=== PATIENT | female | born 1925 | race Caucasian/White ===

== ENCOUNTER 2016-06-03 07:30 | Inpatient (IN) | payer MEDICARE ==
[2016-06-03] VITALS (14 sets, daily range): BP systolic 157–223; BP diastolic 53–94; BMI 21.0
[~2016-06-03] VITALS: Ht 154.9 cm; Wt 50.3 kg
[~2016-06-03 07:30] MED LIST: GLIPIZIDE10 MG PO; HYDROCHLOROTHIA25 MG PO; KLOR-CON 1010 MEQ PO; LANTUS INSULIN10 ML SQ; LEVOXYL75 MCG PO; LOPRESSOR25 MG PO; SYNTHROID50 MCG PO; ZOCOR40 MG PO
[2016-06-03 08:39] LABS: APPEARANCE CLEAR (CLEAR); BILIRUBIN NEGATIVE (NEGATIVE); COLOR YELLOW (YELLOW); GLUCOSE NEGATIVE (NEGATIVE); KETONE NEGATIVE (NEGATIVE); LEUKOCYTE ESTERASE NEGATIVE (NEGATIVE); NITRITE NEGATIVE (NEGATIVE); PROTEIN TRACE mg/dL (NEGATIVE); UROBILINOGEN NORMAL (NORMAL)
[2016-06-03 08:57] LABS: BASOPHILS 0.3 % (0.0-2.0); EOSINOPHILS 1.1 % (0-7); IMMATURE GRANULOCYTES 0.2 % (0-5); MCH 29.1 pg (26.0-34.0); MCHC 31.4 g/dL (31.0-37.0); MCV 92.6 fL (80.0-100.0); MEAN PLATELET VOLUME 11.7 fL (7.4-10.4); MONOCYTES 9.8 % (2-11); NEUTROPHILS 81.6 % (40-80); PLATELET COUNT 254 10x3/uL (130-400); RBC 3.78 10x6/uL (4.00-5.40); RDW 15.7 % (11.5-14.5); WBC 6.5 10x3/uL (4.8-10.8)
[2016-06-03 09:00] LABS: ALBUMIN 2.8 g/dL (3.4-5.0); ANION GAP 13.9 mmol/L (8-16); BILIRUBIN - TOTAL 0.3 mg/dL (0.2-1.3); CALCIUM 8.3 mg/dL (8.5-10.1); CARBON DIOXIDE 28.1 mmol/L (21.0-32.0); CREATININE - SERUM 1.7 mg/dL (0.6-1.3); PROTEIN - SERUM 6.3 g/dL (6.4-8.2)
--- NOTE | 2016-06-03 10:51 | NUR ---
Patient Name: HOLLI PEREZ Admission Status: ER Accout number: [id number] Admission Date: 06-03-2016 : 1927 Admission Diagnosis: prolonged hypoglycemia Attending: TANESHA Current LOS: 1 Anticipated DC Date: 06-07-2016 Planned Disposition: [facility] with home health for PT/OT. Primary Insurance: MEDICARE A & B Discharge Planning Comments: Cm met with patient and daughter, Patience Russ, to complete initial discharge planning assessment. Patient not oriented and not able to answer questions. Patience reports that patient was living with her disabled daughter but she is not able to care for patient any longer. Patient was hospitalized in April and went to [place] post dc from hospital. She just left [place] last week and family placed her in [facility]. Since she has moved to [place] her daughter reports she has had increased confusion. She has a borrowed walker with a seat she is using at facility and they are in the process of getting her a walker ordered. Patient might benefit from therapy at discharge to assist patient in her new environment and help with weakness. Daughter agrees that this would benefit the patient. CM informed her that we could order equipment for her at time of discharge if needed. She verbalized understanding. Cm will continue to follow and will assist as needed with dc plans/needs. Rail Flaw Detector Operator: Mehreen Resendiz RN, [facility] [phone] Is the patient Alert and Oriented? No * How many steps to enter\exit or inside your home? 0 * PCP Dr. Cerna * Pharmacy [facility] * Preadmission Environment Assisted Living * Facility Name [facility] * ADLs Partial Dependent * Partial ADLs (Assistance needed) Medication Management * Equipment Glucometer Rolling Walker * Other Equipment Walker is borrowed from [facility]. Needs either a walker or wheelchair at discharged. * List name and contact numbers for known caregivers / representatives who currently or will assist patient after discharge: Patience Russ - daughter - [phone] * Community resources currently utilized Assisted Living * Additional services required to return to the preadmission environment? Yes * Can the patient safely return to the preadmission environment? Yes * Has this patient been hospitalized within the prior 30 days at any hospital? No
--- NOTE | 2016-06-03 11:40 | NUR ---
DR. WEBBER AT BEDSIDE SPEAKING WITH FAMILY. AWARE OF CURRENT SBP 190. NO ORDERS FOR BP MED.
--- NOTE | 2016-06-03 19:10 | NUR ---
ASSESSMENT COMPLETED. ALERT, FLAT AFFECT. WILL NOT SPEAK JUST STARES AT ME. O2 @ 2L VIA NC, SCOTT LUNGS DIMINISHED IN THE BASES. RT FA PIV, SITE WITHOUT REDNESS OR EDEMA WITH D5LR @ 75CC/HR VIA PUMP. SCOTT EDEMA TO LOWER EXTREMITY'S. BUTTOCK RED, BUTT PASTE APPLIED. PPP. SR ON THE MONITOR.
--- NOTE | 2016-06-03 20:18 | NUR ---
REMOVED MONITOR LEADS, O2 AND ATTEMPTING TO REMOVE IV. REORIENTED, LEAD REPLACE AND COBAN PLACED OVER IV. WILL CONT TO MONITOR. BED ALARM IN PLACE.
--- NOTE | 2016-06-03 21:00 | NUR ---
FAMILY AT BEDSIDE. UPDATE GIVEN.
--- NOTE | 2016-06-03 23:00 | NUR ---
SITTING UP IN BED WATCHING TV. DENIES ANY NEEDS AT THIS TIME.
[2016-06-04] VITALS (16 sets, daily range): BP systolic 157–214; BP diastolic 58–107
--- NOTE | 2016-06-04 01:00 | NUR ---
NO CHANGES AT THIS TIME. SR ON THE MONITOR.
--- NOTE | 2016-06-04 03:40 | NUR ---
BED BATH AND LINEN CHANGE COMPLETED. TOLLERATED WELL. DENIES ANY PAIN AT THIS TIME.
[2016-06-04 04:34] LABS: BASOPHILS 0.4 % (0.0-2.0); HEMATOCRIT 34.5 % (36.0-48.0); HEMOGLOBIN 10.8 g/dL (12-16); IMMATURE GRANULOCYTES 0.3 % (0-5); LYMPHOCYTES 6.3 % (15-50); MCHC 31.3 g/dL (31.0-37.0); MCV 92.7 fL (80.0-100.0); MEAN PLATELET VOLUME 12.1 fL (7.4-10.4); MONOCYTES 8.2 % (2-11); NEUTROPHILS 77.8 % (40-80); PLATELET COUNT 247 10x3/uL (130-400); RBC 3.72 10x6/uL (4.00-5.40); RDW 15.7 % (11.5-14.5); WBC 7.9 10x3/uL (4.8-10.8)
[2016-06-04 04:51] LABS: ALBUMIN 2.9 g/dL (3.4-5.0); ANION GAP 13.5 mmol/L (8-16); BILIRUBIN - TOTAL 0.27 mg/dL (0.2-1.3); CALCIUM 8.6 mg/dL (8.5-10.1); CREATININE - SERUM 1.6 mg/dL (0.6-1.3); PRE-ALBUMIN 17.8 mg/dL (18.0-35.7); PROTEIN - SERUM 6.5 g/dL (6.4-8.2)
[2016-06-04 04:53] LABS: POTASSIUM - SERUM 3.5 mmol/L (3.5-5.1)
--- NOTE | 2016-06-04 13:04 | NUR ---
WALKED PER P.T. ON ROOM AIR. O2 SATS DOWN TO 79%. PLACED BACK ON 2L NC. O2 SAT NOW 96%.
--- NOTE | 2016-06-04 13:22 | NUR ---
RESTING ROOM AIR SAT 85%. PATIENT PLACED BACK ON 2L NC AND RECOVERED TO 94%.
--- NOTE | 2016-06-04 14:05 | NUR ---
DR. WEBBER PAGED CONCERNING BP.
--- NOTE | 2016-06-04 15:10 | NUR ---
DR. WEBBER PAGED CONCERNING BP. NEW ORDER RECIEVED.
--- NOTE | 2016-06-04 17:35 | NUR ---
DR. WEBBER PAGED CONCERNING BP. NEW ORDER RECIEVED.
--- NOTE | 2016-06-04 19:28 | NUR ---
REPORT CALLED TO MED SURG. CALLED DAUGHTER, MYLENE, AND NOTIFIED OF TRANSFER. WILL HOLD PT UNTIL DAUGHTER ARRIVES. PT REMOVED IV AND HANDED IT TO ME. SOMEWHAT CONFUSED. WILL CONT TO MONITOR.
--- NOTE | 2016-06-04 19:38 | NUR ---
DAUGHTER HERE. TRANSFERED TO 2238 VIA W/C.
--- NOTE | 2016-06-04 19:48 | NUR ---
RECEIVED PATIENT FROM ICU. DAUGHTER IS AT BEDSIDE. PATIENT SEEMS ANXIOUS AND CONFUSED ABOUT MOVING TO A NEW ROOM. REORIENTED PATIENT TO TIME AND SITUATION.
[2016-06-05 01:30] VITALS: BP 115/46
[2016-06-05 04:00] VITALS: BP 187/63
--- NOTE | 2016-06-05 07:30 | NUR ---
PATIENT RECEIVED IN LEFT LATERAL POSITION RESTING QUIETLY. RESPIRATIONS EVEN AND UNLABORED. SIDE RAILS UP X3. BED IN LOW POSITION. CALL LIGHT IN REACH. KARLIE ALARM ON.
[2016-06-05 07:48] VITALS: BP 172/63
--- NOTE | 2016-06-05 08:15 | NUR ---
PATIENT ALERT IN BED. REPOSITIONED FOR COMFORT. SCHEDULED MEDICATION ADMINISTERED. SIDE RAILS UP X2. BED IN LOW POSITION. CALL LIGHT IN REACH.
--- NOTE | 2016-06-05 11:00 | NUR ---
ACCU CHECK 132. NO INSULIN PER SLIDING SCALE. DENIES NEEDS. SIDE RAILS UP X3. BED IN LOW POSITION. CALL LIGHT IN REACH. AKRLIE ALARM ON.
--- NOTE | 2016-06-05 11:15 | NUR ---
PATIENT PLACED ON ENTERIC PRECAUTIONS. APPROPRIATE SIGNS PLACED ON DOOR.
[2016-06-05 11:50] LABS: BASOPHILS 0.3 % (0.0-2.0); EOSINOPHILS 6.4 % (0-7); HEMATOCRIT 30.6 % (36.0-48.0); HEMOGLOBIN 9.5 g/dL (12-16); IMMATURE GRANULOCYTES 0.2 % (0-5); MCH 28.5 pg (26.0-34.0); MCV 91.9 fL (80.0-100.0); MEAN PLATELET VOLUME 11.6 fL (7.4-10.4); MONOCYTES 10.7 % (2-11); NEUTROPHILS 73.4 % (40-80); PLATELET COUNT 210 10x3/uL (130-400); RBC 3.33 10x6/uL (4.00-5.40); RDW 15.6 % (11.5-14.5)
[2016-06-05 11:52] LABS: WBC 5.9 10x3/uL (4.8-10.8)
[2016-06-05 12:21] LABS: ALBUMIN 2.6 g/dL (3.4-5.0); ANION GAP 10.1 mmol/L (8-16); BILIRUBIN - TOTAL 0.34 mg/dL (0.2-1.3); CALCIUM 8.3 mg/dL (8.5-10.1); CARBON DIOXIDE 31.7 mmol/L (21.0-32.0); CREATININE - SERUM 1.6 mg/dL (0.6-1.3); POTASSIUM - SERUM 3.8 mmol/L (3.5-5.1); PROTEIN - SERUM 5.6 g/dL (6.4-8.2)
[2016-06-05 12:27] VITALS: BP 173/75
--- NOTE | 2016-06-05 14:01 | NUR ---
CM REASSESSMENT NOTE: CM SPOKE WITH RONNELL, AND SHILPA (DAUGHTERS OF PATIENT) REGARDING D/C NEEDS AND PLANS. PATIENT HAS SOME CONFUSION . DAUGHTERS HAVE REQUESTED HOME HEALTH W/PHYSICAL THERAPY AT [facility] WHEN PATIENT IS DISCHARGED. DAUGHTERS CHOSE [facility] OVER THE PHONE ARMEN FILED IN CHART.
--- NOTE | 2016-06-05 15:35 | NUR ---
ALERT IN BED WITH GUEST AT BEDSIDE. NO SIGNS OF DISTRESS NOTED. SCHEDULED MEDICATION ADMINISTERED. SIDE RAILS UP X3. BED IN LOW POSITION. CALL LIGHT IN REACH. KARLIE ALARM ON.
[2016-06-05 16:05] VITALS: BP 178/64
--- NOTE | 2016-06-05 17:45 | NUR ---
22 GAUGE IV SITED TO RIGHT FOREARM X1 ATTEMPT. FLUSHES EASY WITH BRISK BLOOD RETURN PRESENT. SECURED WITH TAPE AND TEGADERM. WRAPPED WITH KERLEX
[2016-06-05 19:00] VITALS: BP 153/52
--- NOTE | 2016-06-06 03:30 | NUR ---
HELPED PATIENT TO THE RESTROOM. PATIENT HAD A SMALL BM. CHANGED LINENS AND GOWN. BED IN LOWEST POSITION AND CALL LIGHT WITHIN REACH. ENCOURAGED PATIENT TO CALL IF SHE NEEDS ASSISTANCE.
[2016-06-06 04:00] VITALS: BP 153/54
[2016-06-06 06:27] LABS: BASOPHILS 0.2 % (0.0-2.0); EOSINOPHILS 7.8 % (0-7); HEMATOCRIT 29.6 % (36.0-48.0); HEMOGLOBIN 9.2 g/dL (12-16); IMMATURE GRANULOCYTES 0.2 % (0-5); MCH 28.3 pg (26.0-34.0); MCHC 31.1 g/dL (31.0-37.0); MCV 91.1 fL (80.0-100.0); MONOCYTES 13.9 % (2-11); NEUTROPHILS 60.9 % (40-80); PLATELET COUNT 194 10x3/uL (130-400); RBC 3.25 10x6/uL (4.00-5.40); RDW 15.6 % (11.5-14.5); WBC 4.6 10x3/uL (4.8-10.8)
[2016-06-06 06:54] LABS: ALBUMIN 2.6 g/dL (3.4-5.0); ANION GAP 8.3 mmol/L (8-16); BILIRUBIN - TOTAL 0.34 mg/dL (0.2-1.3); CALCIUM 8.2 mg/dL (8.5-10.1); CARBON DIOXIDE 32.5 mmol/L (21.0-32.0); CREATININE - SERUM 1.6 mg/dL (0.6-1.3); POTASSIUM - SERUM 3.8 mmol/L (3.5-5.1); PROTEIN - SERUM 5.4 g/dL (6.4-8.2)
--- NOTE | 2016-06-06 08:07 | NUR ---
AWAKE AND ALERT. ORIENTED X3. NO C/O AT THIS TIME. LUNGS HAVE FAINT CRACKLES IN BILATERAL LOWER LOBES, NO COUGH NOTED. SKIN IS INTACT WITHOUT REDNESS. SCD'S IN PLACE. SL TO RIGHT WRIST AREA PATENT WITHOUT REDNESS AT INSERTION SITE. DENIES NEEDS AT THIS TIME.
--- NOTE | 2016-06-06 08:11 | NUR ---
BP 185/55. GIVEN 0.1 MG CLONIDINE PO. WILL MONITOR.
[2016-06-06 08:13] VITALS: BP 185/55
--- NOTE | 2016-06-06 09:13 | NUR ---
MANUAL BP 130/45 WILL HOLD BP MEDS FOR NOW.
--- NOTE | 2016-06-06 10:53 | NUR ---
RESTING QUIETLY IN BED. DENIES NEEDS. REFUSED TO EAT ANY BREAKFAST THIS AM.
[2016-06-06 12:18] VITALS: BP 175/61
[2016-06-06 14:37] VITALS: Ht 154.9 cm; Wt 50.3 kg
--- NOTE | 2016-06-06 15:41 | NUR ---
BP IS 167/60 MANUAL. GIVEN ONE 0.1 MG CLONIDINE PO FOR SAME. WILL MONITOR.
[2016-06-06 15:52] VITALS: BP 167/60
[2016-06-06 19:00] VITALS: BP 160/80
--- NOTE | 2016-06-07 01:17 | NUR ---
REC'D. DURING WALKING ROUNDS LYING ON LEFT SIDE EYES CLOSED RESP. DEEP AND EVEN.02 2L NC.RESP. DEEP AND EVEN.WILL CONTINUE TO MONITOR FOR ANY CHGES. AND FOLLOW CURRENT PLAN OF CARE
[2016-06-07 04:00] VITALS: BP 188/75
[2016-06-07 06:35] LABS: BASOPHILS 0.7 % (0.0-2.0); EOSINOPHILS 5.6 % (0-7); HEMATOCRIT 30.7 % (36.0-48.0); HEMOGLOBIN 9.6 g/dL (12-16); IMMATURE GRANULOCYTES 0.2 % (0-5); LYMPHOCYTES 14.2 % (15-50); MCH 28.8 pg (26.0-34.0); MCHC 31.3 g/dL (31.0-37.0); MCV 92.2 fL (80.0-100.0); MEAN PLATELET VOLUME 11.4 fL (7.4-10.4); MONOCYTES 13.9 % (2-11); NEUTROPHILS 65.4 % (40-80); PLATELET COUNT 210 10x3/uL (130-400); RBC 3.33 10x6/uL (4.00-5.40); RDW 15.6 % (11.5-14.5); WBC 5.3 10x3/uL (4.8-10.8)
[2016-06-07 07:06] LABS: ALBUMIN 2.6 g/dL (3.4-5.0); ANION GAP 7.4 mmol/L (8-16); BILIRUBIN - TOTAL 0.27 mg/dL (0.2-1.3); CALCIUM 8.5 mg/dL (8.5-10.1); CARBON DIOXIDE 34.1 mmol/L (21.0-32.0); CREATININE - SERUM 1.7 mg/dL (0.6-1.3); POTASSIUM - SERUM 3.5 mmol/L (3.5-5.1)
--- NOTE | 2016-06-07 07:40 | NUR ---
INCONTINENCE CARE PROVIDED AT THIS TIME. LUISA'S APPLIED TO PT'S BUTTOCK D/T REDNESS. KARLIE MAT ALARM IN USE AND SRX3. BED IN LOWEST POSITION WITH WHEELS LOCKED. CALL LIGHT IN REACH, WILL CONTINUE WITH PLAN OF CARE.
--- NOTE | 2016-06-07 08:49 | NUR ---
SCHEDULED MEDICATIONS ADMINISTERED AT THIS TIME. ASSESSMENT PERFORMED PER FLOWSHEET. CALL LIGHT IN REACH, DENIES NEEDS AT THIS TIME. WILL CONTINUE WITH PLAN OF CARE.
[2016-06-07 08:50] VITALS: BP 138/72
--- NOTE | 2016-06-07 10:30 | NUR ---
SLEEPING AT THIS TIME. NO S/S OF DISTRESS PRESENT. OXYGEN ON 2L VIA NC. PT REMAINS CLEAN AND DRY. CALL LIGHT IN REACH AND KARLIE MAT ALARM IN USE. WILL CONTINUE WITH PLAN OF CARE.
[2016-06-07] MEDS ORDERED: LANTUS INSULIN10 ML SC (11:05)
[2016-06-07 12:48] VITALS: BP 171/54
--- NOTE | 2016-06-07 14:48 | NUR ---
CM REASSESSMENT NOTE: PATIENT IS DISCHARGING BACK TO [facility] BY FACILITY VAN TODAY AROUND 3:30. PATIENT HAS PORTABLE O2 IN HER ROOM FOR TRANSPORT PROVIDED BY [facility]. HOME O2 IS BEING DELIVERED TO HER ROOM AT [facility] BEFORE DISCHARGE. BOTH DAUGHTERS (SHILPA) AND ( RONNELL) HAVE BEEN NOTIFIED OF TIME OF DISCHARGE. RONNELL WAS AGREEABLE THIS AM WITH THE IMM.
--- NOTE | 2016-06-07 14:49 | NUR ---
CM REASSESSMENT NOTE: [facility] HAS BEEN NOTIFIED OF DISCHARGE
--- NOTE | 2016-06-07 15:42 | NUR ---
REPORT CALLED TO [facility], [place], [phone], AT THIS TIME. INCONTINENCE CARE PROVIDED AND BRIEF PLACED ON PATIENT. WILL AWAIT D/C TRANSPORTATION.
--- NOTE | 2016-06-07 16:15 | NUR ---
D/C TO [facility] AT THIS TIME VIA WHEELCHAIR.
--- NOTE | 2016-06-20 08:17 | EC ---
PATIENT:HOLLI PEREZ DATE OF SERVICE: 06/03/16 SEX: F MEDICAL RECORD: [id number] DATE OF : [birth year] LOCATION:[facility] [place] AGE OF PATIENT: 89 ADMISSION DATE: 06/03/16 REFERRING PHYSICIAN: INTERPRETING PHYSICIAN: JENNIFER MEEK M.D. ECHOCARDIOGRAM REPORT ECHO CHARGES 4 ECHO COMPLETE CLINICAL DIAGNOSIS: CHF ECHOCARDIOGRAPHIC MEASUREMENTS (adult normal given) AC root (d.<3.7cm) 2.9 LV Septum d (<1.2 cm> 1.3 Valve Excursion 1.6 LV Septum (systole) 1.8 Left Atria (s.<4.0cm> 4.5 LVPW d(<1.2cm) 1.3 RV (d.<2.3cm) 2.6 LVPW (sytole) 1.9 LV diastole(<5.6CM) 5.2 MV E-F(>70mm/sec) LV systole 3.2 LVOT Diameter 1.6 MV exc.(>10mm) Est.ejection fraction (50-75%) Pericardial Effusion Y DOPPLER: LVIT A 148 E 197 LA RVSP 71.0 LVOT 93.0 AOP1/2T Asc. Ao 136 RVOT 55.0 RA PA 82.0 AV Gradient Peak 7.4 AV Mean 3.9 AV Area 1.4 MV Gradient Peak 18.3 MV Mean 6.0 MV Area COMMENTS: Customs Guard: Jean Paul FENGOE Foreign Student Adviser:2 Dr. Meek TAPE# PACS DATE OF SERVICE: 06/05/2016 REFERRING PHYSICIAN: Justice Rashid MD. INDICATION: Congestive heart failure. DESCRIPTION: Left ventricle demonstrates left ventricular hypertrophy. No wall motion abnormalities are seen. Estimated ejection fraction is lower than its normal at 50%. Mitral valve demonstrates thickened leaflets. There is mitral annular calcification noted. There is moderate regurgitation seen. Left atrium ECHOCARDIOGRAM REPORT [id number] HOLLI PEREZ is mildly dilated. The aortic valve leaflets are thickened. There is mild insufficiency seen, but no evidence of stenosis. Right ventricle is mildly dilated. Tricuspid valve is normal. There is mild regurgitation seen. Right ventricular systolic pressure is elevated at 71 mmHg. There is a moderate-sized pericardial effusion noted. It appears circumferential. There is no evidence of any right atrial or right ventricular collapse. There is no evidence of tamponade. IMPRESSION: 1. Left ventricular hypertrophy with ejection fraction of 50%. 2. Moderate mitral regurgitation. 3. Aortic valve sclerosis without stenosis. 4. Mild aortic insufficiency. 5. Moderate tricuspid regurgitation with elevated pulmonary pressure. 6. Wcnot-hc-lmypbkfz size pericardial effusion. There is no evidence of any right atrial, right ventricular collapse or tamponade. TRANSINT:[id number] Voice Confirmation ID: [id number] DOCUMENT ID: [id number] JENNIFER MEEK M.D. at 0817 CC: [id number] DICTATION DATE: 06/06/16 0749 INSPECTOR SUBASSEMBLIES: 06/06/16 0825 DIS IN 06/07/16 [id number] [place] [address]
== END 2016-06-07 16:15 | disposition home health service (06) | DRG 637 ==
LOC: D.ER 07:30 → D.MS 10:06 → D.ICU 10:06 → D.MS 06-04 19:38
PROVIDERS: Emergency Medicine; Family Medicine Adult Medicine; ADMIT Emergency Medicine
DX: E11.649 Type 2 diabetes mellitus with hypoglycemia without coma (principal); I50.31 Acute diastolic (congestive) heart failure; Z79.4 Long term (current) use of insulin; I11.0 Hypertensive heart disease with heart failure; N17.9 Acute kidney failure, unspecified; F03.90 Unspecified dementia, unspecified severity, without behavioral disturbance, psychotic disturbance, mood disturbance, and anxiety; I34.0 Nonrheumatic mitral (valve) insufficiency; T68.XXXA Hypothermia, initial encounter

== ENCOUNTER 2016-06-13 18:35 | Emergency (ER) | payer MEDICARE, OTHER ==
[2016-06-06 14:37] VITALS: BMI 20.9
[~2016-06-13 18:35] MED LIST changes: +LANTUS INSULIN10 ML SC
== END 2016-06-13 20:46 | disposition home or self-care (01) ==
LOC: D.ER 18:35
DX: E11.65 Type 2 diabetes mellitus with hyperglycemia (principal); Z79.4 Long term (current) use of insulin; F03.90 Unspecified dementia, unspecified severity, without behavioral disturbance, psychotic disturbance, mood disturbance, and anxiety

== ENCOUNTER 2016-07-12 15:28 | Emergency (ER) | payer MEDICARE, OTHER ==
[2016-06-06 14:37] VITALS: BMI 20.9
[2016-07-12 16:27] LABS: BASOPHILS 0.5 % (0.0-2.0); EOSINOPHILS 1.8 % (0-7); HEMATOCRIT 37.6 % (36.0-48.0); HEMOGLOBIN 11.7 g/dL (12-16); IMMATURE GRANULOCYTES 0.2 % (0-5); LYMPHOCYTES 13.5 % (15-50); MCH 28.6 pg (26.0-34.0); MCHC 31.1 g/dL (31.0-37.0); MCV 91.9 fL (80.0-100.0); MEAN PLATELET VOLUME 11.8 fL (7.4-10.4); MONOCYTES 10.2 % (2-11); NEUTROPHILS 73.8 % (40-80); PLATELET COUNT 181 10x3/uL (130-400); RBC 4.09 10x6/uL (4.00-5.40); RDW 14.8 % (11.5-14.5); WBC 6.2 10x3/uL (4.8-10.8)
[2016-07-12 16:52] LABS: ALBUMIN 2.9 g/dL (3.4-5.0); ANION GAP 7.2 mmol/L (8-16); BILIRUBIN - TOTAL 0.43 mg/dL (0.2-1.3); CALCIUM 9.1 mg/dL (8.5-10.1); CREATININE - SERUM 1.8 mg/dL (0.6-1.3); POTASSIUM - SERUM 3.2 mmol/L (3.5-5.1); PROTEIN - SERUM 6.8 g/dL (6.4-8.2)
[2016-07-12 16:59] LABS: APTT 24.9 SECONDS (22.8-39.4); INR 0.93 (0.85-1.17); PROTIME 12.3 SECONDS (11.6-15.0)
[2016-07-12 18:52] LABS: APPEARANCE HAZY (CLEAR); BILIRUBIN NEGATIVE (NEGATIVE); COLOR YELLOW (YELLOW); GLUCOSE NEGATIVE (NEGATIVE); KETONE NEGATIVE (NEGATIVE); LEUKOCYTE ESTERASE 2+ (NEGATIVE); NITRITE NEGATIVE (NEGATIVE); PROTEIN 1+ mg/dL (NEGATIVE); UROBILINOGEN NORMAL (NORMAL)
[2016-07-12 18:54] LABS: BACTERIA MODERATE /hpf (NONE SEEN); EPITHELIAL CELLS 0-5 /hpf (0-5); WHITE CELLS - URINE >50 /hpf (0-5)
== END 2016-07-12 20:49 | disposition home or self-care (01) ==
LOC: D.ER 15:28
PROVIDERS: Family Medicine; Physician Assistant
DX: R41.82 Altered mental status, unspecified (principal); E11.9 Type 2 diabetes mellitus without complications; Z79.4 Long term (current) use of insulin; I10 Essential (primary) hypertension; N39.0 Urinary tract infection, site not specified; F03.90 Unspecified dementia, unspecified severity, without behavioral disturbance, psychotic disturbance, mood disturbance, and anxiety

== ENCOUNTER 2016-07-19 01:05 | Inpatient (IN) | payer MEDICARE, OTHER ==
[~2016-07-19] VITALS: Ht 154.9 cm; Wt 50.3 kg
[2016-07-19 02:33] LABS: BASOPHILS 0.2 % (0.0-2.0); HEMATOCRIT 40.8 % (36.0-48.0); HEMOGLOBIN 12.7 g/dL (12-16); IMMATURE GRANULOCYTES 0.5 % (0-5); LYMPHOCYTES 9.7 % (15-50); MCH 28.4 pg (26.0-34.0); MCHC 31.1 g/dL (31.0-37.0); MCV 91.3 fL (80.0-100.0); MEAN PLATELET VOLUME 12.4 fL (7.4-10.4); MONOCYTES 7.6 % (2-11); RBC 4.47 10x6/uL (4.00-5.40); RDW 14.4 % (11.5-14.5); WBC 6.6 10x3/uL (4.8-10.8)
[2016-07-19 02:38] LABS: PLATELET COUNT 226 10x3/uL (130-400)
[2016-07-19 02:41] LABS: ANION GAP 7.9 mmol/L (8-16); BILIRUBIN - TOTAL 0.47 mg/dL (0.2-1.3); CALCIUM 9.3 mg/dL (8.5-10.1); CARBON DIOXIDE 37.5 mmol/L (21.0-32.0); CREATININE - SERUM 1.4 mg/dL (0.6-1.3); POTASSIUM - SERUM 3.4 mmol/L (3.5-5.1)
[2016-07-19 03:04] LABS: APPEARANCE HAZY (CLEAR); BILIRUBIN NEGATIVE (NEGATIVE); COLOR YELLOW (YELLOW); GLUCOSE NEGATIVE (NEGATIVE); KETONE NEGATIVE (NEGATIVE); LEUKOCYTE ESTERASE 1+ (NEGATIVE); NITRITE NEGATIVE (NEGATIVE); PROTEIN 2+ mg/dL (NEGATIVE); SPECIFIC GRAVITY 1.005 (1.005-1.020); UROBILINOGEN NORMAL (NORMAL)
[2016-07-19 03:08] LABS: APTT 26.8 SECONDS (22.8-39.4); INR 0.91 (0.85-1.17); PROTIME 12.1 SECONDS (11.6-15.0)
[2016-07-19 03:11] LABS: BACTERIA MODERATE /hpf (NONE SEEN); EPITHELIAL CELLS 0-5 /hpf (0-5); RED CELLS - URINE 0-5 /hpf (0-5); WHITE CELLS - URINE 25-50 /hpf (0-5); YEAST <1+ /hpf (NONE SEEN)
[2016-07-19 05:26] VITALS: BP 190/81; BMI 21.0
--- NOTE | 2016-07-19 05:30 | NUR ---
RECEIVED PATIENT TO ROOM FROM ER VIA STRETCHER WITH DAUGHTER AND HOSPITAL STAFF. AWAKE AND ALERT BUT ONLY ORIENTED TO SELF. RR EVEN AND UNLABORED. O2 @ 2L VIA NC. 0 S/S OF DISTRESS. DENIES PAIN AT THIS TIME. IV TO LEFT FA S/L WITH NO REDNESS OR SWELLING. DRESSING TO RIGHT FA CDI. SMYTH SECURED WITH STATLOCK AND DRAINING TO GRAVITY. KARLIE MAT ON. DAUGHTER AT BEDSIDE. CALL LIGHT WITHIN REACH.
--- NOTE | 2016-07-19 06:31 | NUR ---
PATIENT'S BP 190/81. CATAPRES GIVEN PER ORDER. BS 176. INSULIN HELD DUE TO RECENT DROP IN BS AND PATIENT BEING NPO.
[2016-07-19] MEDS ORDERED: LANTUS INSULIN10 ML SC (07:47)
[2016-07-19] MEDS ORDERED: IMODIUM2 MG PO (07:48)
[2016-07-19] MEDS ORDERED: COLACE100 MG PO (07:49)
[2016-07-19] MEDS ORDERED: ULTRAM50 MG PO (07:50)
--- NOTE | 2016-07-19 08:00 | NUR ---
PATIENT IS AWAKE AND ALERT AND SHE KNOWS HER NAME AND KNOWS SHE IS IN THE HOSPITAL. SHE IS ANSWERING MOST QUESTIONS. PATIENT HAS A SMYTH CATH AND A S.L. TO LEFT FOREARM. PATIENT IS GOING TO HAVE A RIGHT HIP BIPOLAR ENDOPROSTHESIS TODAY.
[2016-07-19 08:15] VITALS: BP 132/52
--- NOTE | 2016-07-19 12:00 | NUR ---
CALLED PATIENT'S DAUGHTER AND RECEIVED VERBAL CONSENTS WITH CAROLINE NURSE BONE WORKER.
[2016-07-19 12:11] VITALS: BP 111/50
[2016-07-19 12:33] VITALS: Ht 154.9 cm; Wt 50.3 kg
--- NOTE | 2016-07-19 13:00 | NUR ---
CALLED PATIENTS DAUGHTER AND ASKED IF SHE IS DNR. PATIENT IS DNR DID PUT ORDER IN CHART AND COMPUTER FOR THE TO SIGN.
--- NOTE | 2016-07-19 15:00 | NUR ---
PATIENT IS RESTING IN BED, SHE IS CALM AND NO NEEDS. SMYTH DRAINING WELL.
[2016-07-19 15:23] VITALS: BP 120/60; BP 184/81
--- NOTE | 2016-07-19 17:00 | NUR ---
PATIENT IS RESTING WELL, SURGERY CALLED AND SAID TO GIVE PREOP MEDS NOW THEY WILL BE HERE SHORTLY.
--- NOTE | 2016-07-19 17:30 | NUR ---
PATIENT TAKEN TO SURGERY VIA STRETCHER.
--- NOTE | 2016-07-19 19:00 | NUR ---
PATIENT OUT OF ROOM IN SURGERY.
--- NOTE | 2016-07-19 19:00 | NUR ---
PATIENT STILL OFF OF FLOOR AT THIS TIME.
[2016-07-19 20:25] VITALS: BP 158/68
--- NOTE | 2016-07-19 21:00 | NUR ---
PATIENT RECEIVED TO ROOM FROM RECOVERY VIA STRETCHER. AWAKE AND ALERT. VITALS STABLE BUT BP SLIGHTLY HIGH. DENIES PAIN IN HIP AT THIS TIME, BUT STATES HER BACK HURTS. ATTEMPTED TO GIVE PATIENT PAIN MEDICATION BUT SHE REFUSED. IV TO LEFT FA PATENT WITH NO REDNESS OR SWELLING. DRESSING TO RIGHT HIP CDI. SMYTH SECURED WITH STATLOCK AND DRAINING TO GRAVITY. KARLIE ALARM ON. SRX2. BED LOW. CALL LIGHT WITHIN REACH.
--- NOTE | 2016-07-19 22:30 | NUR ---
PATIENT STATES THAT PAIN IS NOW A 7/10 BUT STILL REFUSES PAIN MEDICATION. NIGHTTIME MEDS GIVEN. URINE SAMPLE COLLECTED FROM CLAMPED SMYTH CATHETER.
--- NOTE | 2016-07-20 02:30 | NUR ---
POSTOP VITALS COMPLETE AND WNL. PATIENT IN BED WATCHING TV. NO CHANGE IN ASSESSMENT. DENIES NEEDS.
[2016-07-20 04:00] VITALS: BP 136/69
[2016-07-20 05:41] LABS: BASOPHILS 0.2 % (0.0-2.0); EOSINOPHILS 0.4 % (0-7); IMMATURE GRANULOCYTES 0.2 % (0-5); MCH 28.7 pg (26.0-34.0); MCHC 31.6 g/dL (31.0-37.0); MCV 90.5 fL (80.0-100.0); MEAN PLATELET VOLUME 12.4 fL (7.4-10.4); MONOCYTES 9.9 % (2-11); NEUTROPHILS 82.3 % (40-80); PLATELET COUNT 205 10x3/uL (130-400); RDW 14.3 % (11.5-14.5); WBC 8.2 10x3/uL (4.8-10.8)
[2016-07-20 05:52] LABS: ANION GAP 10.5 mmol/L (8-16); CALCIUM 8.2 mg/dL (8.5-10.1); CARBON DIOXIDE 32.8 mmol/L (21.0-32.0); CREATININE - SERUM 1.5 mg/dL (0.6-1.3); POTASSIUM - SERUM 4.3 mmol/L (3.5-5.1)
[2016-07-20 06:06] LABS: HEMATOCRIT 31.6 % (36.0-48.0); RBC 3.49 10x6/uL (4.00-5.40)
--- NOTE | 2016-07-20 07:55 | HP ---
PATIENT: HOLLI PEREZ MEDICAL RECORD: [id number] ACCOUNT: [id number] LOCATION:D.[id number] : [birth year] ADMISSION DATE: 07/19/16 HISTORY AND PHYSICAL EXAMINATION Medical Consultation ADMITTING PHYSICIAN: Jose L Rodriguez MD. REASON FOR MEDICAL CONSULT: Preoperative medical clearance. HISTORY OF PRESENT ILLNESS: The patient is an 89-year-old female with dementia, who resides at [facility]. She apparently had a urinary tract infection, VRE, with culture positive on 07/12/2016. I cannot see whether she has been treated for that with adequate antibiotics. Nonetheless, she apparently fell from her bed this morning incurring a right femoral neck fracture. She was brought to the Emergency Room and now admitted with Dr. Rodriguez and I had medical consult. The patient denies fever, just complaints of hip pain. She has indwelling Lira currently. PAST MEDICAL HISTORY: She has had history of paroxysmal atrial fibrillation with rapid ventricular response, congestive heart failure, diastolic component with last EF on echo of 50%, chronic respiratory failure with hypoxemia, polex-pc-wvprsss renal insufficiency. History of bilateral pleural effusion, type 2 diabetes mellitus, remote history of pneumonia, dementia, non-STEMI KS on 04/01/2015, hypothyroidism, hyperlipidemia, hypertension, history of bleeding duodenal ulcers, GERD, epistaxis, osteoarthritis. PAST SURGICAL HISTORY: Tonsillectomy, thyroidectomy, hysterectomy, history of heart catheterization. FAMILY HISTORY: Parents are . Father had stroke. Mother had diabetes. One son is alive with history of diabetes. SOCIAL HISTORY: She does not use alcohol. She has never smoked. She is not sexually active. Her care home records show that she is a DO NOT RESUSCITATE. This has not been confirmed at this time. ALLERGIES: MACADAMIA NUTS AND LISINOPRIL. HOME MEDICATIONS: Bumex 1 mg p.o. b.i.d., Colace 100 mg p.o. 2 times a day, ferrous sulfate 325 mg p.o. b.i.d., Levemir insulin 15 units subQ at bedtime, amlodipine 10 mg p.o. daily, losartan 50 mg p.o. daily, metoprolol 25 mg tablet 1/2 tab or 12.5 mg p.o. b.i.d., potassium chloride 10 mEq p.o. b.i.d., Caltrate 600 b.i.d., levothyroxine 88 mcg p.o. q.a.m., nitroglycerin 0.4 sublingual p.r.n. chest pain, Protonix 40 mg p.o. daily, simvastatin 40 mg at h.s., HCTZ 25 mg p.o. q.a.m. REVIEW OF SYSTEMS: Unobtainable from the patient due to her dementia. Except on her musculoskeletal, she is complaining of right hip pain at this time. PHYSICAL EXAMINATION: VITAL SIGNS: Show temperature 98.6 Fahrenheit orally, pulse 75 and regular, respirations are 20, blood pressure initially 230/97, is now 170/70. Sat is 99% on 2 L. HISTORY AND PHYSICAL [id number] HOLLI PEREZ GENERAL: The patient is awake and conversant, but confused to person, place and time. HEENT: Eyes are clear. Pupils reactive. Oropharynx shows dry mucous membranes. NECK: Supple. CHEST: Clear. HEART: Regular rate. BREASTS: Symmetrical. ABDOMEN: Soft, nontender throughout. EXTREMITIES: Her right lower extremity is shortened. She has pain when she flexes her left hip. No ecchymosis is noted. Trace bipedal edema is noted. NEUROLOGIC: The patient is oriented to person, but not to place and time. LABORATORY DATA: Urinalysis shows pyuria and recent culture shows VRE, multi resistant. Other preoperative labs pending. ASSESSMENT: 1. Traumatic right hip fracture, post-fall at care home, and hypoglycemia. 2. Type 2 diabetes mellitus. 3. Vancomycin-resistant Enterococcus urinary tract infection. 4. History of coronary artery disease with PTCA of the left circumflex and distal stenosis of the RCA per catheterization in April 2015, hypertension, hyperlipidemia, hypothyroidism, dementia, osteoarthritis. PLAN: The patient is admitted to surgical floor. We will place the patient on Zyvox based on her recent urinary tract culture and we will notify Dr. Rodriguez of these findings. We will attempt to confirm her DNR status. Sliding scale insulin. We will hold Lantus currently. TRANSINT:[id number] Voice Confirmation ID: [id number] DOCUMENT ID: [id number] JENNIFER SCHERER MD at 0751 CC: [id number] DICTATION DATE: 07/19/16 1341 ENVIRONMENTAL STUDIES PROFESSOR: 07/19/16 1551 ADM IN [facility] [address] [id number]
--- NOTE | 2016-07-20 08:05 | NUR ---
AWAKE AND ALERT. ORIENTED TO SELF ONLY. ATTEMPTS TO REORIENT WITHOUT SUCCESS. LUNGS ARE CLEAR BILATERALLY, NO COUGH NOTED. SKIN IS INTACT WITHOUT REDNESS EXCEPT INCISION TO RIGHT HIP WHICH HAS A DRY INTACT DRESSING IN PLACE. WOUND TO RIGHT FOREARM DRESSING CHANGED, WOUND IS CLEAN AND DRY WELL APPROXIMATED WITH SS IN PLACE. SCD'S IN PLACE. IV TO LEFT FOREARM IS PATENT WITHOUT REDNESS AT INSERTION SITE. DENIES NEEDS.
--- NOTE | 2016-07-20 09:00 | NUR ---
VERY LETHARGIC AFTER RECEIVING HYDROMORPHONE. SPOKE WITH ARMANDO SILVA AND GOT NEW ORDERS FOR PAIN MANAGEMENT. WILL MONITOR.
[2016-07-20 09:29] VITALS: BP 155/69
--- NOTE | 2016-07-20 11:00 | NUR ---
AROUSED TO TACTILE STIMULATION. VERY GROGGY STILL. WILL CONTINUE TO MONITOR.
--- NOTE | 2016-07-20 12:00 | NUR ---
FSBS 153.GIVEN 4 UNITS REGUALR INSULIN SUBQ. STILL LETHARGIC AT THIS TIME. AROUSES TO TACTILE AND VERBAL STIMULATION.
[2016-07-20 12:58] VITALS: BP 150/64
--- NOTE | 2016-07-20 14:00 | NUR ---
BACK IN BED PER PT. CONTINUES VERY LETHARGIC. AROUSED TO VERBAL STIMULATIONS.
--- NOTE | 2016-07-20 15:33 | NUR ---
Rehab Note- Acute Rehab Prescreen order received. The patient had surgery 07/19/16 for hip fx. The patient is being seen for PT at this time- she is max A to total A for transfers to chair at this time. Will see if the patient is able to tolerate therapy in the am and ambulate some. Will continue to follow the patient at this time. Thank you for this referral! Kassidy Epps RN Clinical Liaison, [facility] Rehab/[facility]
--- NOTE | 2016-07-20 16:00 | NUR ---
NO CHANGES NOTED.
[2016-07-20 16:21] VITALS: BP 152/64
--- NOTE | 2016-07-20 17:00 | NUR ---
FSBS 215. GIVEN 4 UNITS REGULAR SUBQ PER SS. CONTINUES TO BE VERY LETHARGIC AROUSES TO VERBAL STIMULATION.
--- NOTE | 2016-07-20 18:15 | NUR ---
FAMILY HERE. CONTINUES TO BE LETHARGIC. AROUSES TO VERBAL STIMULATION. WILL CONTINUE TO MONITOR.
--- NOTE | 2016-07-20 19:00 | NUR ---
PATIENT SLEEPING WITH NO DISTRESS NOTED. HOB 30 DEGREES. RR EVEN AND UNLABORED. O2 @ 2L VIA NC. IV TO LEFT FA PATENT WITH NO REDNESS OR SWELLING. DRESSING TO RIGHT HIP CDI. SMYTH SECURED WITH STATLOCK AND DRAINING TO GRAVITY. KARLIE MAT ON. SRX2. BED LOW. CALL LIGHT WITHIN REACH.
[2016-07-20 20:01] VITALS: BP 145/61
--- NOTE | 2016-07-20 22:10 | NUR ---
PATIENT SLEEPING. AROUSES TO VOICE BUT WILL NOT VERBALLY RESPOND OR FOLLOW COMMANDS. PATIENT WILL NOT TAKE A DRINK OF WATER SO NIGHTTIME MEDS COULD NOT BE GIVEN. BS 127 SO HUMULIN HELD.
[2016-07-21] VITALS: BP 147/65
--- NOTE | 2016-07-21 03:30 | NUR ---
PATIENT STILL SLEEPING WITH NO CHANGE IN INITIAL ASSESSMENT.
[2016-07-21 04:00] VITALS: BP 158/60
[2016-07-21 06:23] LABS: HEMATOCRIT 27.5 % (36.0-48.0); MCH 28.8 pg (26.0-34.0); MCHC 32.7 g/dL (31.0-37.0); MEAN PLATELET VOLUME 12.5 fL (7.4-10.4); RBC 3.12 10x6/uL (4.00-5.40); RDW 14.5 % (11.5-14.5)
[2016-07-21 06:27] LABS: MCV 88.1 fL (80.0-100.0); WBC 10.7 10x3/uL (4.8-10.8)
--- NOTE | 2016-07-21 07:00 | NUR ---
PATIENT IS AWAKE, LOOKING AROUND THE ROOM. ASKING PATIENT QUESTIONS, PATIENT JUST LOOKING AT ME, NOT RESPONDING VERBALLY. PUT MY FINGERS IN PATIENT'S HAND, ASKED HER TO SQUEEZE, PATIENT SQUEEZED. ASSESSED PUPILS, EQUALLY REACTIVE TO LIGHT AND ACCOMIDATION. ASKED PATIENT TO OPEN HER MOUTH SO I CAN LOOK IN HER MOUTH, PATIENT DID NOT OPEN HER MOUTH. TRIED TO DO ORAL CARE, PATIENT WOULD NOT OPEN HER MOUTH. WAS ABLE TO GET A SWAB IN WITH CHLORAHEXADINE ORAL RINSE ON THE SWAB. WASHED FACE AND LIPS WITH A WET WASH CLOTH. APPLIED MOUTH MOISTURIZER TO LIPS. ENTERED THE ROOM. NOTIFIED HIM THAT PATIENT IS NOT VERBALIZING. WENT TO BEDSIDE AND STARTED TALKING TO PATIENT, PATIENT RESPONDED VERBALLY. BED IN LOWEST POSITION, CALL LIGHT IN REACH. BED RAILS UP X'S 2.
[2016-07-21 07:57] VITALS: BP 146/66
[2016-07-21 11:10] VITALS: BP 130/60
--- NOTE | 2016-07-21 11:19 | NUR ---
Patient Name: HOLLI PEREZ Admission Status: ER Accout number: [id number] Admission Date: 07-19-2016 : 1925 Admission Diagnosis:FRACTURE OF UNSP PART OF NECK OF RIGHT FEMUR, INIT Attending: ARIANA Current LOS: 2 Anticipated DC Date: 07-21-2016 Planned Disposition: Inpatient Rehab Primary Insurance: MEDICARE A & B Discharge Planning Comments: CM CALLED PATIENTS DAUGHTER (RONNELL RIVERO) REGARDING D/C NEEDS AND PLANS. PATIENT IS A RESIDENT AT [facility]. PATIENT WAS USING A WALKER, WHEELCHAIR, AND WALKER AT FACILITY PER DAUGHTER. PATIENT HAS NO PCP AND PHARMACY IS IN HOUSE. PATIENT IS DISCHARGING TODAY TO REHAB AND DAUGHTER IS AWARE. CM WILL CONTINUE TO FOLLOW PATIENT WITH D/C NEEDS AND PLANS. PCP NONE IN HOUSE PHARMACY AT [facility] RONNELL RIVERO (DAUGHTER) [phone] Detacher: Janey Bach Is the patient Alert and Oriented? No 0 * How many steps to enter\exit or inside your home? 0 0 * PCP NONE 0 * Pharmacy IN HOUSE AT [facility] 0 * Preadmission Environment Assisted Living 0 * Facility Name [facility] 0 * ADLs Partial Dependent 0 * Partial ADLs (Assistance needed) Ambulation Bathing Dressing Medication Management Toileting 0 * Equipment Rolling Walker Shower Chair Wheelchair 0 * List name and contact numbers for known caregivers / representatives who currently or will assist patient after discharge: RONNELL RIVERO ([phone]) DAUGHTER 0 * Community resources currently utilized Assisted Living 0 * Please name any agencies selected above. [facility] 0 * Additional services required to return to the preadmission environment? Yes 0 * Can the patient safely return to the preadmission environment? Yes 0 * Has this patient been hospitalized within the prior 30 days at any hospital? No 0 Grand Total: 0
[2016-07-21] MEDS ORDERED: LOVENOX30 MG/0.3 SC (14:43)
[2016-07-21 15:27] VITALS: BP 124/64
--- NOTE | 2016-07-21 17:00 | NUR ---
SMYTH CARE COMPLETED AT THIS TIME. PATIENT HAS A KERLIX DRESSING TO RIGHT FOREARM, REMOVED. THERE IS A SKIN TEAR WITH 5 STERI STRIPS INTACT. APPLIED A MEPIRLEX DRESSING. D/C IV WITH CATHETER INTACT.
--- NOTE | 2016-07-21 17:36 | NUR ---
TOOK PATIENT TO REHAB VIA BED WITH PROJECT COORDINATOR RN. TRANSFERED PATIENT TO REHAB BED WITH ASSIST FROM PROJECT COORDINATOR RN AND REHAB NURSE.
== END 2016-07-21 17:30 | DRG 470 ==
LOC: D.ER 01:05 → D.MS 02:55 → D.REHAB 02:55 → D.MS 15:50 → D.REHAB 07-21 16:10 → D.MS 07-21 16:42 → D.REHAB 07-21 18:13
PROVIDERS: Family Medicine; ADMIT Orthopaedic Surgery
PROC: 0T9B70Z Drainage of Bladder with Drainage Device, Via Natural or Artificial Opening (ICD-10-PCS; 2016-07-19)
PROC: 0SRR0JZ Replacement of Right Hip Joint, Femoral Surface with Synthetic Substitute, Open Approach (ICD-10-PCS; principal; 2016-07-19 15:00)
DX: S72.001A Fracture of unspecified part of neck of right femur, initial encounter for closed fracture (principal); I50.30 Unspecified diastolic (congestive) heart failure; J96.10 Chronic respiratory failure, unspecified whether with hypoxia or hypercapnia; N39.0 Urinary tract infection, site not specified; W06.XXXA Fall from bed, initial encounter; I48.0 Paroxysmal atrial fibrillation; I11.0 Hypertensive heart disease with heart failure; F03.90 Unspecified dementia, unspecified severity, without behavioral disturbance, psychotic disturbance, mood disturbance, and anxiety; E11.649 Type 2 diabetes mellitus with hypoglycemia without coma; Z79.4 Long term (current) use of insulin; E03.9 Hypothyroidism, unspecified; E78.5 Hyperlipidemia, unspecified; K21.9 Gastro-esophageal reflux disease without esophagitis; B95.2 Enterococcus as the cause of diseases classified elsewhere; Z16.21 Resistance to vancomycin; R40.2412 Glasgow coma scale score 13-15, at arrival to emergency department

== ENCOUNTER 2016-07-21 16:00 | Inpatient (IN) | payer MEDICARE, OTHER ==
[~2016-07-21] VITALS: Ht 154.9 cm; Wt 38.6 kg
[~2016-07-21 16:00] MED LIST changes: +COLACE100 MG PO; +IMODIUM2 MG PO; +LOVENOX30 MG/0.3 SC; +ULTRAM50 MG PO
[2016-07-21 19:47] VITALS: BP 130/62
--- NOTE | 2016-07-21 21:20 | NUR ---
CONTINUES IN BED, RESTING ON RIGHT SIDE, EYES CLOSED.
--- NOTE | 2016-07-21 23:20 | NUR ---
HS MEDS AND ADMISSION ASSESSMNET COMPLETED WITH PATIENT AND AFTER REVIEW OF PRIOR RECORDS. DUE TO ADVANCED DEMENTIA, PATIENT IS UNABLE TO RECALL HER HISTORY, NOR WILL SHE CONVERSE SO TO ANSWER WHEAT SHE MIGHT REMEMBER. SEE ADMISSION ASSESSMENT.
--- NOTE | 2016-07-22 00:10 | NUR ---
RESTING IN BED, IN PARTIAL RIGHT SIDELYING POSITION. HOB UP 20 DEGREES. APPEARS COMFORTABLE.
--- NOTE | 2016-07-22 02:10 | NUR ---
RESTING QUIETLY IN BED, EYES CLOSED. NO DISTRESS NOTED.
--- NOTE | 2016-07-22 05:40 | NUR ---
AWOKE PATIENT. PATIENT TOOK SYNTHROID 75MCG PO WITHOUT DIFFICULTY. REEMPLACED HER NASAL CANNULA SHE HAD TAKEN IT OFF FHR THE 2ND TIME IN THE PAST 30 MINUTES.
[2016-07-22 06:27] LABS: BASOPHILS 0.1 % (0-2); EOSINOPHILS 0.4 % (0-7); HEMATOCRIT 26.3 % (36.0-48.0); HEMOGLOBIN 8.6 g/dL (12-16); IMMATURE GRANULOCYTES 0.2 % (0-5); LYMPHOCYTES 5.8 % (15-50); MCH 28.9 pg (26.0-34.0); MCHC 32.7 g/dL (31.0-37.0); MCV 88.3 fL (80.0-100.0); MEAN PLATELET VOLUME 11.8 fL (7.4-10.4); MONOCYTES 9.7 % (2-11); NEUTROPHILS 83.8 % (40-80); PLATELET COUNT 180 10x3/uL (130-400); RBC 2.98 10x6/uL (4.00-5.40); RDW 14.5 % (11.5-14.5); WBC 9.2 10x3/uL (4.8-10.8)
[2016-07-22 06:43] LABS: ANION GAP 9.4 mmol/L (8-16); CALCIUM 7.9 mg/dL (8.5-10.1); CARBON DIOXIDE 32.1 mmol/L (21.0-32.0); CREATININE - SERUM 1.5 mg/dL (0.6-1.3); POTASSIUM - SERUM 3.5 mmol/L (3.5-5.1)
[2016-07-22 07:00] VITALS: BP 142/72
--- NOTE | 2016-07-22 07:00 | NUR ---
PT WAS RECEIVED AT THE BEGINNING OF THIS SHIFT. VITAL SIGNS; TEMP. 98.6, PULSE 78, RESP. 15, B/P 142/72, 02SAT. 98%. STABLE CONDITION OBSERVED. PT IS IN ISOLATION PRECAUTIONS FOR VRE IN THE URINE. TOTAL ASSIST TO BE GIVEN WITH ALL ADL'S. NO SIGNS OF ANY DISCOMFORT OR DISTRESS. WILL BE MONITORING.
[2016-07-22 17:04] VITALS: Ht 154.9 cm; Wt 38.6 kg
--- NOTE | 2016-07-22 18:48 | NUR ---
DR. WEBBER ROUNDED THIS MORNING. PT. WAS PUT ON A SLIDING SCALE WELL GLUCOPHAGE 500MG BID. PT'S DAUGHTER CAME FOR A VISIT THIS AFTERNOON. SHE WAS GIVEN A TRAMADOL 50MG AROUND 0945 AM FOR GRIMACING PAIN DURING HER THERAPY SESSION. SHE RESTED WELL THIS AFTERNOON IN BED.
--- NOTE | 2016-07-22 19:25 | NUR ---
PATIENT IN BED, AWAKE. ASKED HER HOW SHE WAS AND SHE REPLIED, "I'M FINE." ASKED HER IF SHE WAS FINISHED WITH HER DINNER TRAY AND SHE SAT STARING AT ME WITHOUT RESPONDING. REMOVED DINNER TRAY (PATIENT HAD PREVIOUSLY EATEN 20%) AND SHE SAID NOTHING FURTHER. SR UP X3 WITH CALL LIGHT IN REACH AND KARLIE BED ALARM ARMED.
--- NOTE | 2016-07-22 21:36 | NUR ---
LEFT MESSAGE FOR DR. WEBBER REGARD DNR STATUS.
[2016-07-22 21:45] VITALS: BP 160/60
--- NOTE | 2016-07-22 21:45 | NUR ---
ASSESSMENT AND HS MEDS COMPLETE. FSBS 118. GAVE PATIENT LANTUS INSULIN SC IN RIGHT UPPER ABDOMEN. CONTINUES VERBALLY RESPONSIVE AT TIMES. OTHERWISE WHEN QUESTIONED OR REQUESTED TO PERFORM A SIMPLE ACTION, PATIENT JUST STARES DIRECTLY AT YOU AND DOES NOT RESPOND AT ALL. TOOK HS MEDS WITH SOME DIFFICULTY SHE EITHER POCKETED THE MEDS AND BEGAN TO CHEW THEM, OR BEGAN TO CHEW THEM SOON THEY WERE PUT IN HER MOUTH. SWALLOWS WATER WITHOUT DELAY WHEN GIVEN ALONE.
--- NOTE | 2016-07-22 22:30 | NUR ---
PATIENT AWAKE. DENIES PAIN. FOUND HER FIDDLING WITH SMYTH CATH AND STAT LOCK. ASKED HER TO LEAVE THE SMYTH ALONE, TELLING HER THAT IT IS DRAINING HER URINE. COVERED HER LEGS BACK UP.
--- NOTE | 2016-07-22 23:35 | NUR ---
PULLED UP PATIENT COVERS. REEMPLACED HER NASAL CANNULA. PATIENT REMAINS AWAKE. SHE SELF-TURNED TO RIGHT SIDELYING POSITION, RETURNED A BLANK STARE WHEN I ASKED HER HOW SHE IS DOING.
--- NOTE | 2016-07-23 01:55 | NUR ---
RESTING IN BED, EYES CLOSED. CONTINUES ON O2 PER N/C AT 2L FLOW.
--- NOTE | 2016-07-23 04:45 | NUR ---
RESTING QUIETLY IN BED, RESPIRATIONS UNLABORED.
--- NOTE | 2016-07-23 05:35 | NUR ---
FSBS 77. TOOK 20 MINUTES TO GET PATIENT TO DRINK 4 OZS SWEETENED APPLE JUICE TO SUPPORT HER BLOOD SUGAR UNTIL BREAKFAST. PATIENT AGAIN WILL NOT RESPOND VERBALLY NOR ATTEND TO ME WHILE I SPEAK DIRECTLY TO HER. SHE SIMPLY STARES.
[2016-07-23 07:00] VITALS: BP 166/64
--- NOTE | 2016-07-23 07:00 | NUR ---
PT WAS RECEIVED IN BED AWAKE AT THE BEGINNING OF THIS SHIFT. EYES WIDE OPEN BUT NOT ANSWERING QUESTIONS OR TALKING TO STAFF. SHE REFUSED HER BREAKFAST, MAYBE EATTING 20%. VITAL SIGNS; TEMP. 97.1, PULSE 81, RESP. 14, B/P 166/64, 02SAT. 98%. WILL BE MONITORING HER AND ASSISTING PRN WITH ADL'S. STABLE CONDITION OBSERVED.
[2016-07-23 08:49] LABS: BASOPHILS 0 % (0-2); EOSINOPHILS 0.7 % (0-7); HEMATOCRIT 26.8 % (36.0-48.0); HEMOGLOBIN 8.6 g/dL (12-16); IMMATURE GRANULOCYTES 0.1 % (0-5); LYMPHOCYTES 9.8 % (15-50); MCH 29.1 pg (26.0-34.0); MCHC 32.1 g/dL (31.0-37.0); MCV 90.5 fL (80.0-100.0); MEAN PLATELET VOLUME 11.7 fL (7.4-10.4); MONOCYTES 10.2 % (2-11); NEUTROPHILS 79.2 % (40-80); PLATELET COUNT 211 10x3/uL (130-400); RBC 2.96 10x6/uL (4.00-5.40); RDW 14.5 % (11.5-14.5)
--- NOTE | 2016-07-23 18:28 | NUR ---
PT RESTED TODAY AFTER EATTING 80% OF HER LUNCH. PT HAS SPOKEN MAYBE 3 WORDS TODAY. SMYTH CATHETER HAS BEEN PATENT AND DRAINED 300ML'S OF YELLOW URINE. NO SIGNS OF ANY DISCOMFORT OR DISTRESS.
--- NOTE | 2016-07-23 19:40 | NUR ---
PT IS AWAKE, SITTING UP IN BED. BED LOW. CL IN REACH. WCTM.
[2016-07-23 19:50] VITALS: BP 158/64
--- NOTE | 2016-07-23 21:20 | NUR ---
PT HS MEDS ADMINISTERED CRUSHED IN APPLESAUCE. PT TOOK MEDS WITHOUT DIFFICULTY. PT DENIES NEEDS. WCTM. BED LOW. CL IN REACH.
--- NOTE | 2016-07-23 22:25 | NUR ---
PT RESTING, EYES CLOSED. BED LOW. CL IN REACH.
--- NOTE | 2016-07-24 00:25 | NUR ---
PT RESTING, EYES CLOSED. BED LOW. CL IN REACH.
--- NOTE | 2016-07-24 03:17 | NUR ---
PT RESTING, EYES CLOSED. BED LOW. CL IN REACH.
--- NOTE | 2016-07-24 06:00 | NUR ---
PT RESTED WELL THROUGHT THE NIGHT. AM MEDS ADMINISTERED. SMYTH EMPTIED OF 425ML. PT DENIES NEEDS. BED LOW. CL IN REACH.
[2016-07-24 06:15] LABS: BASOPHILS 0.1 % (0-2); EOSINOPHILS 0.5 % (0-7); HEMATOCRIT 28.2 % (36.0-48.0); HEMOGLOBIN 8.9 g/dL (12-16); IMMATURE GRANULOCYTES 0.1 % (0-5); LYMPHOCYTES 7.1 % (15-50); MCH 28.4 pg (26.0-34.0); MCHC 31.6 g/dL (31.0-37.0); MCV 90.1 fL (80.0-100.0); MEAN PLATELET VOLUME 11.9 fL (7.4-10.4); MONOCYTES 10.8 % (2-11); NEUTROPHILS 81.4 % (40-80); RBC 3.13 10x6/uL (4.00-5.40); RDW 14.4 % (11.5-14.5); WBC 7.8 10x3/uL (4.8-10.8)
[2016-07-24 06:26] LABS: PLATELET COUNT 255 10x3/uL (130-400)
[2016-07-24 06:33] LABS: ANION GAP 11.7 mmol/L (8-16); CALCIUM 8.1 mg/dL (8.5-10.1); CARBON DIOXIDE 30.7 mmol/L (21.0-32.0); CREATININE - SERUM 1.8 mg/dL (0.6-1.3)
[2016-07-24 06:35] LABS: POTASSIUM - SERUM 4.4 mmol/L (3.5-5.1)
--- NOTE | 2016-07-24 08:00 | NUR ---
PATIENT CONFUSED. PULLED OVER DRESSING TO RIGHT HIP. INCISION CLEANED AND NEW DRESSING APPLIED. PULLED OFF STAT LOCK AND PULLING ON SMYTH CATH. NEW STAT LOCK APPLIED. AND SMYTH MOVED OUT OF PATIENTS WAY. OXYGEN ON AT 2L PER N/C. PATIENT PULLED UP IN BED ASST OF TWO. PATIENT IS A FEEDER
[2016-07-24 08:10] VITALS: BP 194/72
--- NOTE | 2016-07-24 10:15 | NUR ---
DR. Ai WEBBER INTO SEE PATIENT. NEW ORDERS RECEIVED.
--- NOTE | 2016-07-24 12:00 | NUR ---
GLUCOSE LEVEL 200. TWO UNITS OF SLIDING SCALE INSULIN GIVEN
--- NOTE | 2016-07-24 15:32 | NUR ---
BED BATH GIVEN. COCCYX HAS A BLACK AREA. FIRST LAYER OF SKIN OFF. COCCYX CLEANED. MEPILEX DRESSING APPLIED.
--- NOTE | 2016-07-24 17:25 | NUR ---
PATIENT INCONT OF BOWEL. GLUCOSE LEVEL 173. TWO UNITS OF SLIDING SCALE INSULIN GIVEN
--- NOTE | 2016-07-24 17:47 | NUR ---
SITTING UP IN BED BEING FED SUPPER BY STAFF
--- NOTE | 2016-07-24 19:40 | NUR ---
PT SITTING UP IN BED RESTING QUIETLY. PT DENIES NEEDS. BED LOW. CL IN REACH.
[2016-07-24 20:14] VITALS: BP 176/62
--- NOTE | 2016-07-24 21:05 | NUR ---
PT STAT LOCK REPLACED DUE TO PT PULLING OFF OLD ONE. BUTT PASTE APPLIED TO PT COCCYX. PT DENIES NEEDS AT THIS TIME. BED LOW. CL IN REACH.
--- NOTE | 2016-07-24 22:15 | NUR ---
PT HS MEDS ADMINISTERED. PT TURNED ONTO LEFT SIDE. WCTM. BED LOW. CL IN REACH.
--- NOTE | 2016-07-25 01:23 | NUR ---
PT RESTING, EYES CLOSED. BED LOW. CLIN REACH.
--- NOTE | 2016-07-25 03:20 | NUR ---
PT NC REPOSITIONED BACK INTO NOSE. PT DENIES NEEDS. BED LOW. CL IN REACH.
--- NOTE | 2016-07-25 06:10 | NUR ---
AT 0545 PT FSBS WAS 59. ADMINISTERED AM MEDS WITH APPLE JUICE. PT FSBS RECHECKED AND IS NOW 92. WCTM. BED LOW. CL IN REACH.
--- NOTE | 2016-07-25 07:30 | NUR ---
RESTING QUIETLY IN BED CALL LIGHT IN REACH
[2016-07-25 08:16] VITALS: BP 170/55
--- NOTE | 2016-07-25 09:48 | NUR ---
INTRODUCED SELF TO PT, MORNING MEDICATION GIVEN, PT TOLERATED WELL, WILL CONTINUE TO MONITOR, CALL LIGHT WITHIN REACH.
--- NOTE | 2016-07-25 12:12 | RHP ---
PATIENT: HOLLI PEREZ MEDICAL RECORD: [id number] ACCOUNT: [id number] LOCATION:[facility] : [birth year] ADMISSION DATE: 07/21/16 REHABILITATION HISTORY AND PHYSICAL EXAMINATION POST ADMISSION PHYSICIAN EXAMINATION DATE OF ADMISSION: 07/21/2016 ADMITTING DIAGNOSES: Acute right fracture of the femoral neck, status post right endoprosthesis and acute blood loss anemia. HISTORY OF PRESENT ILLNESS: The patient is an 89-year-old female patient, who presented inpatient rehab for acute fracture of the right femoral neck, status post endoprosthesis. The patient has a history of dementia. She lives at [facility] in her own apartment. She apparently had a UTI, VRE, with culture positive on July 12. She was brought to the ED after falling on the morning of July 19 incurring a right femoral neck fracture. She has postop blood loss anemia. She has got a history of dementia and does not verbalize much. She lives at [facility] in her own apartment. [facility] stated that the patient does not verbalize much, but is alert, follows commands and easily redirected, ambulate with use of a rolling walker and required set up assistance with her ADLs. She is currently moderate assist to total assist for ADLs and max assist to total assist for mobility. Definitely need inpatient rehabilitation if she is going to return back to [facility]. COMORBIDITIES: In this patient include acute hypoglycemia, blood loss anemia, osteoarthritis, dementia, VRE, history of diabetes, essential hypertension, coronary atherosclerosis, atrial fib and history of coronary angioplasty. PAST MEDICAL HISTORY: Significant for diabetes, thyroid problems, dementia, paroxysmal atrial fib, type 2 diabetes, hypothyroidism, hyperlipidemia, duodenal ulcers, gastroesophageal reflux disease and osteoarthritis. PAST SURGICAL HISTORY: Includes tonsillectomy, adenoidectomy, hysterectomy, thyroidectomy and stent placement. ALLERGIES: LISINOPRIL, [place]IA NUT OIL. She is currently on a low resistant sliding scale with insulin. She is on Synthroid 75 mcg daily, enoxaparin 30 mg subQ daily, tramadol 50 mg q.12 hours p.r.n. pain, simvastatin 40 mg q.h.s., potassium 10 mEq b.i.d., Lopressor 25 mg b.i.d., Imodium 2 mg q.i.d. p.r.n. She is on Lantus 15 units subQ q.h.s. She is on hydrochlorothiazide 25 mg b.i.d., Colace 100 mg b.i.d., and polyethylene glycol 17 grams in 8 ounces of water daily. HABITS: No alcohol or tobacco use. FAMILY HISTORY: Noncontributory. SOCIAL HISTORY: The patient hopes to return back to [facility] and get back to her prior level of functioning. REVIEW OF SYSTEMS: HISTORY AND PHYSICAL [id number] HOLLI PEREZ GENERALLY: Unable to obtain secondary to her dementia. PHYSICAL EXAMINATION: VITAL SIGNS: Stable. She is afebrile. GENERAL: Elderly female in no distress, alert upon exam, but somewhat confused. HEENT: Normocephalic and atraumatic. Mucosa moist. NECK: Supple. No lymphadenopathy. LUNGS: Clear at this time. HEART: Regular rate and rhythm. ABDOMEN: Benign. EXTREMITIES: Consistent with hip replacement. NEUROLOGIC: Consistent with dementia. LABORATORY DATA: White count is 9.2, H&H 8.6 and 26.3 and platelet count is 180. Her sodium is 134, potassium 3.5, BUN and creatinine of 28 and 1.5 and blood sugar is noted to be 113. ASSESSMENT: This is a 89-year-old female patient admitted to rehab with a working diagnosis of status post right hip fracture, status post endoprosthesis. The patient has potential to make improvement. We instituted the following multidisciplinary therapies including to, but not limited to physical, occupational, respiratory, speech, nutritional services, prosthetics and orthotics. Given her complex condition and risk for more complications, rehabilitation services cannot be provided at a low level of care such as a residential facility. PLAN: 1. Admit to [facility] rehab for intensive inpatient therapy to include the following disciplines: A. Physical therapy to improve gait, all transfer skills and bed mobility to a modified independent level. B. Occupational therapy to improve activities of daily to a modified independent level. C. Case management to assist with discharge planning and placement options. D. Nutrition to assist with nutritional needs. E. Rehabilitation nursing to assist in monitoring the patient's underlying medical conditions and to assist with any type of bowel or bladder management. 2. The patient's current medication and medical care will be continued. 3. The patient's estimated length of stay is approximately 7-10 days. 4. We will watch her H&H closely and replace as needed. 5. Discuss during care team staff meeting this week. TRANSINT:[id number] Voice Confirmation ID: [id number] DOCUMENT ID: [id number] ELVIS WEBBER MD at 1212 CC: [id number] DICTATION DATE: 07/22/16 1322 LOSS PREVENTION SUPERVISOR: 07/22/16 191 ADM IN [facility] [address] [id number]
--- NOTE | 2016-07-25 13:09 | NUR ---
Nutrition Follow Up: Pt reported that her appetite is good and that she is drinking Glucerna. Pt is eating 45% meal avg on a diabetic diet. She is receiving Glucerna TID. Wt stable. I>O. +BM 07/24/16. Labs noted - Glucose continues elevated. Meds noted including Metformin, Humulin, Lantus. Pt with fair po intake at this time. Rec continue current diet. Will continue to send Glucerna TID. RD following.
--- NOTE | 2016-07-25 14:27 | NUR ---
PT RESTING IN BED, RESPIRATIONS EVEN, WILL CONTINUE TO MONITOR, CALL LIGHT WITHIN REACH, BED ALARM ON.
--- NOTE | 2016-07-25 16:42 | NUR ---
MEDICATION GIVEN, PT TOLERATED WELL, PT LYING ON RIGHT SIDE, EMPTY SMYTH 450CC COLECTED, WILL CONTINUE TO MONITOR, CALL LIGHT WITHIN REACH.
--- NOTE | 2016-07-25 19:10 | NUR ---
IN BED, AWAKE. LYING ON RIGHT SIDE WITH HOB UP 30 DEGREES. ASKED HER HOW SHE IS DOING. ANSWERED, "I FEEL FINE." TRIED TO CONVERSE FURTHER, BUT PATIENT STOPPED SPEAKING AND AGAIN JUST STARED AT ME.
[2016-07-25 19:16] VITALS: BP 156/64
[2016-07-26] VITALS (18 sets, daily range): BP systolic 139–183; BP diastolic 55–86
--- NOTE | 2016-07-26 02:05 | NUR ---
IN BED ON LEFT SIDE. AWAKE. BLANKETS OFF. SAYS SHE IS COMFORTABLE WITHOUT THE BLANKETS. REPLACED NASAL CANNULA IN NARES PATIENT HAD REMOVED IT.
--- NOTE | 2016-07-26 04:05 | NUR ---
REMAINS AWAKE. REPLACED HER NASAL CANNULA IN NARES. WAS ABLE TO HOLD A BRIEF SIMPLE CONVERSATION WITH PATIENT REGARDING KEEPING NASAL CANNULA IN PLACE TO MAKE HER BREATHING EASIER.
--- NOTE | 2016-07-26 06:20 | NUR ---
FSBS 143. EMPTIED 450ML CLOUDY YELLOW, FOUL SMELLING URINE FROM SMYTH DRAINAGE BAG.
[2016-07-26 06:25] LABS: BASOPHILS 0.1 % (0-2); EOSINOPHILS 0.6 % (0-7); HEMATOCRIT 26.4 % (36.0-48.0); HEMOGLOBIN 8.3 g/dL (12-16); IMMATURE GRANULOCYTES 0.4 % (0-5); LYMPHOCYTES 6.9 % (15-50); MCH 28.1 pg (26.0-34.0); MCHC 31.4 g/dL (31.0-37.0); MCV 89.5 fL (80.0-100.0); MEAN PLATELET VOLUME 10.7 fL (7.4-10.4); MONOCYTES 14.1 % (2-11); NEUTROPHILS 77.9 % (40-80); PLATELET COUNT 257 10x3/uL (130-400); RBC 2.95 10x6/uL (4.00-5.40); RDW 14.5 % (11.5-14.5); WBC 8.4 10x3/uL (4.8-10.8)
[2016-07-26 06:41] LABS: ANION GAP 9.7 mmol/L (8-16); CALCIUM 8.3 mg/dL (8.5-10.1); CARBON DIOXIDE 31.6 mmol/L (21.0-32.0); CREATININE - SERUM 1.5 mg/dL (0.6-1.3); POTASSIUM - SERUM 4.3 mmol/L (3.5-5.1)
--- NOTE | 2016-07-26 08:15 | NUR ---
PT RESTING IN BED WITH EYES OPEN CALL LIGHT IN REACH WILL MONITER
--- NOTE | 2016-07-26 12:00 | NUR ---
PT RESTING IN BED WITH EYES OPEN CALL LIGHT IN REACH WILL MONITER
--- NOTE | 2016-07-26 13:35 | NUR ---
CARE TEAM MEETING: TENATIVE DISCHARGE DATE IS 08/07/16. PATIENT LIVES AT [facility]. SHE HAS A WALKER AND WHEELCHAIR. SHE WILL NEED FOLLOW UP APPOINTMENT WITH DR. MCGRAW. WILL CONTINUE TO FOLLOW WITH PATIENT UNTIL DISCHARGED
--- NOTE | 2016-07-26 14:18 | NUR ---
SITTING UP IN WC ACTIVE IN THERAPY.
--- NOTE | 2016-07-26 15:55 | NUR ---
1ST UNIT OF 2 PRBC STARTED PRE MEDS GIVEN BLOOD RUNNING AT 125/CC/HR WILL MONITER CALL LIGHT IN REACH
--- NOTE | 2016-07-26 17:16 | NUR ---
PT RESTING IN BED WITH EYS OPEN PRBC RUNNING AT 125 CC/HR CALL LIGHT IN REACH WILL MONITER
--- NOTE | 2016-07-26 19:30 | NUR ---
1ST UNIT OF PRBC'S COMPLETE. S/L FLUSHED. WILL OBTAIN2 ND UNIT FROM BLOOD BANK SHORTLY. PATIENT RESTING QUIETLY ON RIGHT SIDE WITH HOB UP 30 DEGREES.
--- NOTE | 2016-07-26 19:50 | NUR ---
OBTAINED 2ND UNIT PRBC'S FROM BLOOD BANK, AND AFTER VERIFYING UNIT WITH SORIN ORTEGA, TOOK VS AND STARTED BLOOD TO RUN @ 125ML PER HOUR PER PUMP VIA LEFT AC S/L. PATIENT REMAINS IN BED, RESTING QUIETLY.
--- NOTE | 2016-07-26 22:30 | NUR ---
TRANSFUSION OF 2ND UNIT PRBC'S COMPLETE. LEFT FA S/L FLUSHED. WILL DELIVER PATIENT MEDS AFTER ELECTRO MECHANICAL ASSEMBLER BATHES HER.
--- NOTE | 2016-07-26 23:15 | NUR ---
BATH AND LINEN CHANGE WERE EARLIER COMPLETED BY METAL POURER. APPLIED SMALL SACRAL MEPILEX DRESSING TO STAGE 2 DECUB OF COCCYX. PATIENT HAS RETURNED TO MINIMAL RESPONSIVENESS NOTED AT TIME OF HER ADMISSION. HAS NOT SPOKEN TO ME AT ALL TONIGHT. FSBS 164 GAVE PATIENT SCHEDULED LANTUS 15 UNITS SC IN RIGHT ABDOMEN. WILL HOLD 4 UNIT REDULAR SLIDING SCALE DOSE SHE WILL NOT EAT A SNACK AND SHE BOTTOMS EASILY OVERNIGHT. TURNED PATIENT TO LEFT SIDELYING POSITION.
--- NOTE | 2016-07-27 | NUR ---
RESTING IN BED, EYES CLOSED. APPEARS COMFORTABLE. CONTINUES ON O2 PER N/C @ 2L FLOW. SMYTH CATH PATENT TO BSD BAG WITH CLOUDY YELLOW URINE.
--- NOTE | 2016-07-27 02:15 | NUR ---
REMAINS IN BED, EYES CLOSED. NO DISTRESS NOTED.
--- NOTE | 2016-07-27 04:30 | NUR ---
CONTINUES IN BED, EYES CLOSED. RESPIRATIONS UNLABORED.
--- NOTE | 2016-07-27 05:45 | NUR ---
IN BED, EYES CLOSED. NO DISTRESS NOTED.
--- NOTE | 2016-07-27 06:50 | NUR ---
FSBS AT 0635 WAS 66. PATIENT VERY LETHARGIC AND DIFFICULT TO AROUSE, SHE HAS BEEN AT TIMES ALL SHIFT. GAVE PATIENT /2 AMP D50W IVP VIA LEFT FA S/L AND FLUSHED S/L WILL RECHECK FSBS SHORTLY.
--- NOTE | 2016-07-27 07:00 | NUR ---
RECHECK FSBS 139. PATIENT REMAINS VERY LETHARGIC, BUT RESPONDS BETTER TO CALLING HER NAME.
--- NOTE | 2016-07-27 07:23 | NUR ---
RESP EASY.CL IN REACH.NO DISTRESS.
--- NOTE | 2016-07-27 08:15 | NUR ---
PT RESTING IN BED WITH EYES OPEN CALL LIGHT IN REACH PT ASSISTED WITH EATING BREAKFAST
--- NOTE | 2016-07-27 18:09 | NUR ---
PT RESTING IN BED WITH EYES OPEN CALL LIGHT IN REACH NO PROBLEMS WILL MONITER
[2016-07-27 18:54] VITALS: BP 166/68
--- NOTE | 2016-07-27 19:10 | NUR ---
PATIENT IN BED LYING ON RIGHT SIDE, HOB UP 30 DEGREES. AWOKE PATIENT TO AMPLACE HER SCD LEGGINGS AND START THE SCD PUMP. REVIEWED HER MENU WITH HER, BUT DURING THE PROCESS SHE STOPPED VERBALIZING AND REFERTED BACK TO STARING AT ME AND MAKING NO EFFORT TO VERBALIZE AT ALL. THIS IS NOT NEW BEHAVIOR AND HAS OCCURRED MULTIPLE TIMES SINCE ADMISSION.
--- NOTE | 2016-07-27 19:50 | NUR ---
RESTING QUIETLY IN BED.
--- NOTE | 2016-07-27 21:35 | NUR ---
BED ALARM SOUNDING. CAUGHT PATIENT ATTEMPTING OUT BETWEEN BEDRAILS ON RIGHT SIDE OF BED. ASSISTED HER BACK INTO BED. AT THE TIME I FOUND HER PULLING ON HER NASAL CANNULA QUITE HARD. ASKED HER WHAT SHE WAS DOING. SHE RESPONDED, "TRYING TO TIE THIS THING." REMINDED HER THAT HER NASAL CANNULA IS PROVIDING HER OXYGEN TO MAKE HER BREATHING EASIER. REPLACED CANNULA IN NARES. AND REPOSITIONED PATIENT IN BED. REARMED BED ALARMS (BOTH INTERNAL BED ALARM AND KARLIE ALARM). TOLD PATIENT I WILL RETURN SHORTLY WITH HER BEDTIME MEDICATIONS.
--- NOTE | 2016-07-27 22:30 | NUR ---
FSBS 239. GAVE PATIENT 4 UNITS REGULAR SLIDING SCALE INSULIN, BUT HELD SCHEDULED 15 UNITS OF LANTUS INSULIN PATIENT HAS HAD EARLY AM FSBS IN THE 50'S AND 60'S WHEN BOTH HAVE BEEN GIVEN RECENTLY SHE CONTINUES TO EAT POORLY AND WILL NOT EAT HER BEDTIME SNACK. ASSESSMENT COMPLETE. TOOK HS MEDS CRUSHED IN APPLESAUCE. SHE IS COOPERATIVE TONIGHT FOR THE MOST PART, AND HAS ANSWERED SIMPLE QUESTIONS AT TIMES USING SINGLE WORDS OR SHORT PHRASES, BUT THEN SUDDENLY SHE WILL REVERT TO BEING NON-VERBAL AND JUST STARING AT ME WHEN I WILL ASK HER A QUESTION. TURNED PATIENT TO LEFT SIDELYING POSITION FOR PRESSURE RELIEF TO HER COCCYX DECUB.
--- NOTE | 2016-07-28 | NUR ---
RESTING QUIETLY IN BED ON LEFT SIDE. NO DISTRESS NOTED.
--- NOTE | 2016-07-28 01:45 | NUR ---
RESTING IN BED ON LEFT SIDE. NO DISTRESS NOTED.
--- NOTE | 2016-07-28 04:30 | NUR ---
RESTING QUIETLY AT PRESENT. RESPIRATIONS UNLABORED.
--- NOTE | 2016-07-28 05:20 | NUR ---
PATIENT AWAKE IN BED. GREETED HER, ASKING HOW SHE IS THIS MORNING. PATIENT RESPONDED, "I AM FINE THIS MORNING, HOW ARE YOU?" I'M GRATIFIED AT THIS IMROVEMENT IN HER ABILITY TO VERBALIZE, EVEN THOUGH IT WAS A SIMPLE CONVERSATION. WILL SHE IF SHE CAN STAY ALERT.
[2016-07-28 06:51] LABS: BASOPHILS 0.1 % (0-2); EOSINOPHILS 0.6 % (0-7); IMMATURE GRANULOCYTES 0.5 % (0-5); MCH 28.8 pg (26.0-34.0); MCHC 31.5 g/dL (31.0-37.0); MONOCYTES 11.3 % (2-11); NEUTROPHILS 78.5 % (40-80); PLATELET COUNT 288 10x3/uL (130-400); RDW 15.1 % (11.5-14.5); WBC 7.9 10x3/uL (4.8-10.8)
[2016-07-28 06:53] LABS: HEMATOCRIT 37.5 % (36.0-48.0); HEMOGLOBIN 11.8 g/dL (12-16); MCV 91.5 fL (80.0-100.0)
--- NOTE | 2016-07-28 07:00 | NUR ---
PT WAS RECEIVED IN BED AWAKE AT THE BEGINNING OF THIS SHIFT. PT. IS ALERT AND ORIENTED ONLY TO SELF. VITAL SIGNS; TEMP. 98.0, PULSE 73, RESP. 14, B/P 193/66, 02SAT. 98%. SMYTH CATHETER REMAINS PATENT AND DRAINING YELLOW URINE. PT REMAINS IN ISOLATION PRECAUTIONS FOR VRE IN THE URINE. WILL BE MONITORING PT. AND ASSISTING PRN WITH ADL'S. NO SIGNS OF DISCOMFORT OR DISTRESS.
[2016-07-28 07:02] LABS: ANION GAP 5.8 mmol/L (8-16); CARBON DIOXIDE 32.8 mmol/L (21.0-32.0); CREATININE - SERUM 1.8 mg/dL (0.6-1.3); POTASSIUM - SERUM 4.6 mmol/L (3.5-5.1)
[2016-07-28 09:44] VITALS: BP 193/66
--- NOTE | 2016-07-28 13:49 | NUR ---
PT WAS GIVEN A SHOWER BY THE OT AND NURSE. AFTER SHOWER, MEPILEX WAS REPLACED ON HER COCCYX REGION. FRESH LINENS WERE PLACED ON HER BED. LEFT UPPER FOREARM HAS SALINE LOCKED IV. BLOOD SUGAR LEVELS ARE BEING MONITORED PER ORDER. PT. CONTINUES TO NOT TALK, ONLY A COUPLE OF WORDS THIS DAY. WILL CONTINUE TO OBSERVE AND ASSIST.
[2016-07-28 18:52] VITALS: BP 184/76
--- NOTE | 2016-07-28 19:20 | NUR ---
PT. IN BED WITH HOB UP FOR COMFORT WITH EYES CLOSED AND RESP. EVEN. PT. AWAKENS EASILY FOR ASSESSMENT. NO VOICED NEEDS AT THIS TIME AND HER CALL LIGHT IS WITHIN REACH.
--- NOTE | 2016-07-28 19:22 | NUR ---
PT HAD A LARGE INCONTINENT BOWEL EPISODE AND WAS GIVEN VERY GOOD PERINEAL CARE BY THE AIDE AND THE NURSE. NEW MEPILEX WAS APPLIED TO THE COCCYX. PT. WAS FED HER SUPPER AND SHE ATE 95% IN 45MINUETES. PT'S DAUGHTER FROM [place] CAME FOR A SHORT 15 MINUETE VISIT THIS EVENING.
--- NOTE | 2016-07-28 23:01 | NUR ---
PT. IN BED WITH HOB UP FOR COMFORT AND LYING ON HER RIGHT SIDE. EYES OPEN AND SHE HAS PULLED HER HOSPTIAL GOWN OFF. REPLACE GOWN AND INSTRUCTED PT. TO PLEASE LEAVE HER GOWN ON SO THAT SHE DOESN'T EXPOSE HERSELF TO ANYONE WALKING DOWN THE HALLWAY IF STAFF FORGETS TO CLOSE HER DOOR. NO RESPONSE FROM PT. TO KNOW IF SHE UNDERSTOOD OR NOT SHE HAS A DIAGNOSIS OF DEMENTIA. CALL LIGHT LEFT WITHIN HER REACH, IF SHE WILL USE.
--- NOTE | 2016-07-29 01:02 | NUR ---
PT. HAD INCONTINENT BM. PT. CLEANED, BUTT PASTE APPLIED TO REDDENED YOLY AREA AFTER PROVIDING SMYTH CARE. PLAIN MEPILEX DRESSING INTACT TO COCCYX AREA. O2 APPLIED PT. HAD REMOVED IT AGAIN. INSTRUCTED PT. THAT O2 IS A MEDICATION THAT HER MD HAS ORDERED FOR HER AND SHE NEEDS TO LEAVE IT ON. CALL LIGHT LEFT WITHIN REACH FOR HER USE IF SHE WILL USE.
[2016-07-29 07:00] VITALS: BP 186/71
--- NOTE | 2016-07-29 07:52 | NUR ---
PATIENT ALERT TO SELF ONLY. FEEDER. BED ALARM ON X2. CALL LIGHT WITHIN REACH. PATIENT DOES NO ALWAY USE CALL LIGHT. SMYTH CATH INTACT. DRAINING DARK YELLOW URINE. FLUIDS ENCOURAGED.
--- NOTE | 2016-07-29 10:17 | NUR ---
PATIENT REMAINS IN CONTACT ISOLOATION FOR VRE IN URINE. SMYTH CATH INTACT. DRAINAG STRAW, CLOUDY URINE.
--- NOTE | 2016-07-29 11:59 | NUR ---
GLUCOSE LEVEL 282. SIX UNITS OF SLIDING SCALE INSULIN GIVEN PER ORDER. DAUGHTER VISIING IN ROOM. PATIENT SITTING UP IN A WHEELCHAIR. DAUGHTER STATED SHE WILL FEED HER MOTHER LUNCH
--- NOTE | 2016-07-29 15:19 | NUR ---
PATIENT HAVING LOOSE STOOL. MEPILEX DRESSING CHANGED TO COCCYX AREA.
--- NOTE | 2016-07-29 18:25 | NUR ---
RESTING QUIETLY IN BED. CALL LIGHT IN REACH
[2016-07-29 19:17] VITALS: BP 88/73
--- NOTE | 2016-07-29 19:35 | NUR ---
PT. IN BED WITH HOB UP FOR COMFORT LYING ON HER RIGHT SIDE WITH EYES CLOSED AND RESP. EVEN. PT. HAS IN HER RIGHT HAD A DOG MAGAZINE THAT HER DAUGHTER BROUGHT TO HER TO LOOK AT. 2 OF PT'S DAUGHTERS ARE HERE FOR A VISIT. BOTH ARE AWARE OF THE CONTACT ISOLATION PROCEDURE DUE TO PT'S VRE IN HER URINE. DAUGHTERS HAVE REQUESTED PT. NOT HAVE THE COLACE TONIGHT PT. HAS HAD 2 LOOSE STOOLS TODAY ALREADY. PT. AWAKENS EASILY FOR ASSESSMENT. NO OTHER VOICED NEEDS AT THIS TIME. CALL LIGHT WITHIN REACH.
--- NOTE | 2016-07-29 23:20 | NUR ---
PT. IN BED WITH HOB UP FOR COMFORT AND LYING ON HER RIGHT SIDE. PT. AWAKENS SOON HER DOOR IS OPEN. NO VOICED NEEDS AND CALL LIGHT WITHIN REACH.
--- NOTE | 2016-07-30 02:25 | NUR ---
FOUND PT. LYING ON HER LEFT SIDE AND SHE HAS PULLED OFF HER MEPILEX BORDER DRESSING FROM HER COCCYX AND HAS PULLED HER PERIPHERIL I.V. OUT WITH CATHETER INTACT. NO VISIBLE BLEEDING FROM I.V. SITE BUT THERE IS A SKIN TEAR JUST BELOW I.V. SITE ON PT'S LEFT FOREARM. NO VISIBLE ACTIVE BLEEDING FROM IT. DISCUSSED WITH CHARGE NURSE ABOUT APPLYING NEW MEPILEX AND DUE TO PT. PULLING LAST ONE OFF WITH NOT APPLY ANOTHER MEPILEX BUT WILL APPLY BUTT PASTE INSTEAD. APPLIED BUTT PASTE TO YOLY/SACRAL AREA. POSITIONED PT. TO COMFORT AND CALL LIGHT WITHIN REACH.
--- NOTE | 2016-07-30 03:14 | NUR ---
PT. IN BED LYING ON HER BACK WITH HOB UP FOR COMFORT WITH EYES OPEN I OPENED THE DOOR. CALL LIGHT WITHIN REACH.
[2016-07-30 07:00] VITALS: BP 195/81
--- NOTE | 2016-07-30 07:50 | NUR ---
PATIENT REMAINS IN CONTACT ISOLATION. VRE URINE. SMYTH CATH INTACT. DRAINING DARK MELLY URINE. PATIENT IS CONFUSED. BED ALARM ON. CALL LIGHT WITHIN REACH. PATIENT IS A FEEDER. THIS NURSE FEEDING PATIENT. FLUIDS ENCOURAGED.
--- NOTE | 2016-07-30 10:37 | NUR ---
B/P DOWN [id number] TO 183/73 AFTER LOPRESSOR GIVEN AT 10:00.
--- NOTE | 2016-07-30 11:47 | NUR ---
GLUCOSE LEVEL 203. FOUR UNITS OF SLIDING SCALE INSULIN GIVEN PER ORDER. PATIENT SITTING UP FOR LUNCH. ASST OF TWO TOTAL TO GET PATIENT FROM BED TO WHEELCHAIR.
--- NOTE | 2016-07-30 13:17 | NUR ---
PATIENT HELPED BACK TO BED. HAD AN INCONT OF BOWEL. LARGE LOOST STOOL. PATIENT GIVEN A BED BATH. LINENS ON BED CHANGED
--- NOTE | 2016-07-30 17:19 | NUR ---
GLUCOSE LEVEL 233. FOUR UNITS OF SLIDING SCALE INSULIN GIVEN PER ORDER. THIS NURSE FEEDING PATIENT SUPPER.
[2016-07-30 19:32] VITALS: BP 166/78
--- NOTE | 2016-07-30 19:55 | NUR ---
PT. IN BED WITH HOB UP FOR COMFORT LYING ON HER RIGHT SIDE. EYES ARE CLOSED AND RESP. DEEP AND EVEN. ASSESSMENT COMPLETED. SMYTH TO BSD WITHOUT ANY PROBLEMS. CALL LIGHT WITHIN REACH.
--- NOTE | 2016-07-30 22:00 | NUR ---
PT. GIVEN VANILLA PUDDING FOR HER BEDTIME SNACK BUT WOULD ONLY TAKE 50%.
--- NOTE | 2016-07-30 23:10 | NUR ---
PT. IN BED, AWAKE AND HAS HAD AN INCONTINENT BM THAT IS SOFT LIGHT BROWN. PT. CLEANED, ALL LINENS CHANGED AND PT. REPOSITIONED TO COMFORT WITH HOB UP AND CALL LIGHT WITHIN REACH. PT. NON-VERBAL THIS SHIFT SO FAR. SMYTH TO BDS WITHOUT PROBLEMS. HAVE TO REMIND PT. NOT TO PULL ON CATHETER TUBING OR THE STAT LOCK DEVICE THAT IS ON HER LEG THAT IS HOLDING CATHETER TUBING IN PLACE.
--- NOTE | 2016-07-31 03:40 | NUR ---
PT. IN BED WITH HOB UP FOR COMFORT LYING ON HER LEFT SIDE. EYES ARE CLOSED AND RESP. EVEN. SMYTH TO BSD WITHOUT PROBLEM. CALL LIGHT WITHIN REACH
[2016-07-31 06:43] LABS: BASOPHILS 0.1 % (0-2); EOSINOPHILS 0.1 % (0-7); HEMATOCRIT 33.8 % (36.0-48.0); HEMOGLOBIN 10.7 g/dL (12-16); IMMATURE GRANULOCYTES 0.4 % (0-5); MCH 29.3 pg (26.0-34.0); MCHC 31.7 g/dL (31.0-37.0); MCV 92.6 fL (80.0-100.0); MEAN PLATELET VOLUME 11.2 fL (7.4-10.4); NEUTROPHILS 91.4 % (40-80); PLATELET COUNT 320 10x3/uL (130-400); RBC 3.65 10x6/uL (4.00-5.40); RDW 15.2 % (11.5-14.5); WBC 17.1 10x3/uL (4.8-10.8)
[2016-07-31 07:21] LABS: ANION GAP 14.8 mmol/L (8-16); CALCIUM 8.2 mg/dL (8.5-10.1); CARBON DIOXIDE 27.4 mmol/L (21.0-32.0); CREATININE - SERUM 1.8 mg/dL (0.6-1.3); POTASSIUM - SERUM 5.2 mmol/L (3.5-5.1)
--- NOTE | 2016-07-31 07:49 | NUR ---
DR. Ai WEBBER INTO SEE PATIENT. NEW ORDERS RECEIVED. THIS NURSE FEEDING PATIENT BREAKFAST. CONTACT ISOLATION FOR VRE IN URINE. F/C INTACT. DRAINING DARK YELLOW URINE
[2016-07-31 08:45] VITALS: BP 165/65
--- NOTE | 2016-07-31 10:11 | NUR ---
THIS NURSE HELPED OCCUPATIONAL THERAPIST GET PATIENT FROM BED TO WHEELCHAIR. TOTAL ASST OF TWO.
--- NOTE | 2016-07-31 12:00 | NUR ---
GLUCOSE LEVEL 188, TWO UNITS OF SLIDING SCALE INSULIN GIVEN PER ORDER. THIS NURSE FEEDING PATIENT. PATIENT ATE 50% OF LUNCH. DRANK 480CC OF FLUIDS
--- NOTE | 2016-07-31 15:15 | NUR ---
URINE COLLECTED AND TAKEN UP TO LAB.
[2016-07-31 15:27] LABS: APPEARANCE HAZY (CLEAR); BILIRUBIN NEGATIVE (NEGATIVE); COLOR YELLOW (YELLOW); GLUCOSE 100 mg/dL (NEGATIVE); KETONE NEGATIVE (NEGATIVE); LEUKOCYTE ESTERASE 2+ (NEGATIVE); NITRITE POSITIVE (NEGATIVE); PROTEIN 1+ mg/dL (NEGATIVE); SPECIFIC GRAVITY 1.015 (1.005-1.020); UROBILINOGEN NORMAL (NORMAL)
[2016-07-31 15:29] LABS: BACTERIA MANY /hpf (NONE SEEN); WHITE CELLS - URINE >50 /hpf (0-5); YEAST >1+ WITH HYPHAE /hpf (NONE SEEN)
--- NOTE | 2016-07-31 17:00 | NUR ---
GLUCOSE LEVEL 263. SIX UNITS OF SLIDING SCALE INSULIN GIVEN. SMYTH CATH CARE GIVEN.
[2016-07-31 18:43] VITALS: BP 166/62
--- NOTE | 2016-07-31 18:43 | NUR ---
PT HAS REMAINED STABLE ON THE 7AM TO 7PM SHIFT. PT COMPLETED AN UNEVENTFUL DAY TODAY. CALL LIGHT IS IN HER REACH.
--- NOTE | 2016-07-31 19:20 | NUR ---
PATIENT IN BED, HOB UP 45 DEGREES. NOT VERBALIZING AT THIS TIME, BUT AWAKE. SR UP X3 WITH WATER AND CALL LIGHT IN REACH. BED ALARM IS ARMED.
--- NOTE | 2016-07-31 19:50 | NUR ---
REMAINS IN BED, AWAKE. SR UP X3 WITH WATER AND CALL LIGHT IN REACH. PATIENT HAS NOT VERBALLY RESPONDED TO MY GREETING OR SINMPLE QUESTIONS THUS FAR TONIGHT.
--- NOTE | 2016-07-31 22:00 | NUR ---
ASSESSMENT AND HS MEDS COMPLETE. APPLIED BUTT PASTE TO PATIENT'S STAGE 2 ABRASION/DECUB OVER HER COCCYX. TOOK HS MEDS CRUSHED IN APPLESAUCE. RESPONDED TO A FEW SIMPLE QUESTIONS WITH YES/NO ANSWERS THEN STOPPE VERBALIZING. GOT HER TO EAT ABOUT 2 JOSE ARMANDO SQUARES SOFTENED WITH SKIN MILK FOR HS SNACK BEFORE SHE INDICATED SHE DIDN'T WANT ANYMORE. TURNED HER BACK TO PARTIAL RIGHT SIDELYING POSITION FROM HER BACK. FSBS 130. GAVE HER SCHEDULED LANTUS 15 UNITS SC IN LUQ ABDOMEN. WILL SEE IF HER PARTIAL SNACK WILL KEEP HER FROM BOTTOMING IN THE EARLY AM. I WOULD HAVE HELD THE LANTUS BUT DAY SHIFT REPORTS SHE IS HAVING 300+ LEVEL BLOOD SUGARS DURING THE DAY WHEN IT HAS BEE HELD RECENTLY.
--- NOTE | 2016-08-01 00:15 | NUR ---
RESTING QUIETLY IN BED IN PARTIAL RIGHT SIDELYING POSITION. APPEARS COMFORTABLE.
--- NOTE | 2016-08-01 02:05 | NUR ---
PATIENT AWAKE. NOT VERBALIZING AT THIS TIME. TURNED PATIENT TO LEFT SIDELYING POSITION WITH HOB UP 10 DEGREES. NO EVIDENT DISCOMFORT.
--- NOTE | 2016-08-01 04:30 | NUR ---
CHANGED PATIENT'S PULL-UP BRIEF AND APPLIED FRESH BUTT PASTE TO STAGE 2 COCCYX. REPOSITIONED PATIENT ON LEFT SIDE AFTER ASSISTING HER TO DON FRESH SCRUB TOP. EMPTIED 450ML CLOUDY YELLOW URINE FROM SMYTH DRAINAGE BAG. RE-SECURED SMYTH Y-CONNECTION IN STAT-LOCK CLAMP PATIENT HAD NEARLY PULLED IT FROM THE STAT-LOCK. REPLACED NASAL CANNULA IN NARES PATIENT HAD PULLED IT OUT.
--- NOTE | 2016-08-01 05:30 | NUR ---
PATIENT IN BED, AWAKE BUT NOT VERY RESPONSIVE. FSBS 54. GAVE PATIENT GLUCAGON 1MG IN 1ML IM IN RGM. WILL RECHECK BLOOD SUGAR IN 30-45 MINUTES. IS NOT ALERT ENOUGHT TO EAT TO RAISE HER BLOOD SUGAR NATURALLY.
--- NOTE | 2016-08-01 06:15 | NUR ---
RECHECK FSBS 136.
--- NOTE | 2016-08-01 08:00 | NUR ---
shift assmt completed.is not conversing this am or makes eye contact.
[2016-08-01 09:08] VITALS: BP 171/68
--- NOTE | 2016-08-01 10:00 | NUR ---
sleeping,did drink 100% of glucerna this am at breakfast but refuses to stay awake or take meds at this time.xray and us ordered for swelling rt hip.incision clean and dry.
--- NOTE | 2016-08-01 12:30 | NUR ---
pos up in bed eyes open.meal fed.few bites taken.glucerna 80% taken.
--- NOTE | 2016-08-01 15:39 | NUR ---
WOUND CARE: RECEIVED CALL FROM CHARGE NURSE MIKE ORTEGA IN REFERENCE TO PT NEEDING AN OVERLAY MATTRESS D/T PRESSURE INJURY ON SACRUM. ON ASSESSMENT, NOTED PT TO HAVE AN UNSTAGEABLE PRESSURE INJURY MEASURING 4CM X 4CM X YELLOW/CLAIRE ESCAR/NECROTIC TISSUE. WOUND WAS COVERED WITH MEPILEX SACRAL DRESSING FOR PROTECTION. WILL RECOMMEND SANTYL OINTMENT BE APPLIED TO WOUND BED TO ASSIST WITH DEBRIDEMENT OF NECROTIC TISSUE. PT IS BEING PLACED ON AN AIR OVERLAY MATTRESS BUT WILL REQUIRE BEING TURNED/REPOSITIONED Q2H WHILE IN BED AND REPOSITIONED HOURLY WHILE UP IN WHEEL CHAIR. EATING HABITS ARE POOR AND SHE IS VERY THIN. SHE IS INCONTINENT OF BOWELS AND BLADDER AND HAS A SMYTH CATH. WOUND CARE WILL CONTINUE TO MONITOR.
--- NOTE | 2016-08-01 16:00 | NUR ---
turned q2h while in bed.1st step matress placed on bed.
--- NOTE | 2016-08-01 19:15 | NUR ---
RESTING IN BED, EYES CLOSED. LYING ON RIGHT SIDE ON 1ST STEP AIR OVERLAY. SR UP X3 WITH WATER AND CALL LIGHT IN REACH. O2 PER N/C @ 2L FLOW. SMYTH CATH PATENT TO BSD BAG WITH CLOUDY YELLOW URINE.
[2016-08-01 20:49] VITALS: BP 168/68
--- NOTE | 2016-08-01 22:15 | NUR ---
ASSESSMENT AND HS MEDS COMPLETE. CHANGED COCCYX WOUND DRESSING PER NEW ORDER. PATIENT NOT RESPONDING VERBALLY TONIGHT. MAKES NO EFFORT TO FOLLOW INSTRUCTIONS. FSBS 180. GAVE HER 2 UNITS REGULAR INSULIN SC IN LEFT UPPER ARM. GAVE HER MEDS CRUSHED IN VANILLA PUDDING, WHICH SHE TOOK, SWALLOWING WITH LONG DELAYS DUE TO SEQUENCING DIFFICULTY RELATED TO DECREASED COGNITION RATHER THAN MECHANICAL (NEUROMUSCULAR) IMPAIRMENT. PATIENT WOULD OPEN HER MOUTH NO MORE THAN 1/8" TO TAKE SPOONFUL IN. HAD TO GENTLY SPREAD HER JAWS, USING GLOVED INGERS IN ORDER TO GET HER TO OPEN MOUTH WIDE ENOUGH TO ACCEPT EACH SMALL SPOONFUL. PATIENT DID NOT RESIST THIS.
[2016-08-02] VITALS (7 sets, daily range): BP systolic 155–178; BP diastolic 54–66
--- NOTE | 2016-08-02 00:05 | NUR ---
PATIENT IN BED, AWAKE. A BIT RESTLESS. STILL NOT RESPONDING TO QUESTIONS. JUST STARES.
--- NOTE | 2016-08-02 02:45 | NUR ---
RESTING QUIETLY IN BED ON RIGHT SIDE. HOB UP 15 DEGREES. NO DISTRESS NOTED.
--- NOTE | 2016-08-02 04:45 | NUR ---
PATIENT AWAKE. REPLACED NASAL CANNULA IN NARES PATIENT HAD REMOVED IT. REMAINS IN RIGHT SIDELYING POSITION. OFFERED HER A DRINK OF WATER AND SHE DECLINED, SAYING, "UNH-UNH". HAS REFUSED TO DRINK ALL NIGHT. SMYTH OUTPUT A CLOUDY, FOUL 200ML. REARRANGED HER TOP COVERS. VERIFIED THAT HER SMYTH CATH IS UNOBSTRUCTED.
--- NOTE | 2016-08-02 06:05 | NUR ---
PATIENT ALERT. NON-VERBAL THIS MORNING BUT AFTER NOT DRINKING ALL NIGHT AND REFUSING AGAIN ABOUT AN HOUR AGO, SHE TOOK HER SCHEDULED SYNTHROID CRUSHED IN APPLESAUCE AND DRANK 120ML WATER WITHOUT DIFFICULTY OR COMPLAINT. TURNED HER TO LEFT SIDELYING POSITION.
--- NOTE | 2016-08-02 07:02 | NUR ---
RESTING QUIETLY IN BED CALL LIGHT IN REACH
[2016-08-02 07:39] LABS: ANION GAP 8.5 mmol/L (8-16); CALCIUM 7.4 mg/dL (8.5-10.1); CARBON DIOXIDE 31.8 mmol/L (21.0-32.0); CREATININE - SERUM 1.7 mg/dL (0.6-1.3); POTASSIUM - SERUM 4.3 mmol/L (3.5-5.1)
[2016-08-02 07:49] LABS: BASOPHILS 0 % (0-2); EOSINOPHILS 0.5 % (0-7); HEMATOCRIT 20.7 % (36.0-48.0); IMMATURE GRANULOCYTES 0.3 % (0-5); LYMPHOCYTES 8.2 % (15-50); MCH 28.7 pg (26.0-34.0); MCHC 30.9 g/dL (31.0-37.0); MCV 92.8 fL (80.0-100.0); MEAN PLATELET VOLUME 11.1 fL (7.4-10.4); MONOCYTES 8.6 % (2-11); NEUTROPHILS 82.4 % (40-80); PLATELET COUNT 268 10x3/uL (130-400); RBC 2.23 10x6/uL (4.00-5.40); RDW 15.5 % (11.5-14.5); WBC 10.3 10x3/uL (4.8-10.8)
[2016-08-02 07:51] LABS: HEMOGLOBIN 6.7 g/dL (12-16)
--- NOTE | 2016-08-02 08:21 | NUR ---
PT RESTING IN BED WITH EYES OPEN CALL LIGHT IN REACH NO PROBLEMS WILL MONITER
--- NOTE | 2016-08-02 13:16 | NUR ---
Nutrition Follow Up: Pt was asleep at the time of RD visit. Chart reviewed and pt discussed in rehab staffing. Pt is eating 35% meal avg on a diabetic diet with chopped meats. RD asked MD if he could start an appetite stimulant and he agreed. +BM 07/31/16. No new wt to assess. Labs reviewed - BUN, Cr elevated. Meds noted including Metformin, Humulin. Will change diet to Regular with chopped meats to encourage po intake. Rec obtaining new wt on pt. RD will continue to monitor pt progress.
--- NOTE | 2016-08-02 14:51 | NUR ---
CARE TEAM MEETING: SPOKE WITH DAUGHTER RONNELL LOPEZ AND SHE AND HER FAMILY WILL TOUR FACILITIES FOR POSSIBLE ADMISSION DUE TO CHANGE IN COGNITION AND PATIENT UNABLE TO REFTURN TO [facility] AT THIS TIME. WILL CONTINUE TO FOLLOW WITH PATIENT AND WILL MAKE REFERRAL WHEN NOTIFIED
--- NOTE | 2016-08-02 19:10 | NUR ---
IN BED, AWAKE. IN RIGHT SIDELYING POSITION WITH HOB UP 45 DEGREES. DENIES NEEDS.
--- NOTE | 2016-08-02 21:30 | NUR ---
PATIENT IN BED, IN PARTIAL LEFT SIDELYING POSITION. HOB UP 45 DEGREES. DENIES NEEDS.
--- NOTE | 2016-08-02 22:00 | NUR ---
AFTER OBTAINING AND VERIFYING 1ST UNIT OF PRBC'S, FLUSHED LEFT WRIST S/L AFTER PREMEDICATING PATIENT WITH 12.5MG IVP OF BENADRYL, AND STARTED TRANSFUSION TO RUN @ 125ML RATE FOR NOW. INITIAL VS WERE PREVIOUSLY TAKEN AND RECORDED.
--- NOTE | 2016-08-02 22:45 | NUR ---
ASSESSMENT AND HS MEDS COMPLETE. PATIENT MORE TALKATIVE TONIGHT AT TIMES. SWALLOWED HS MEDS CRUSHED IN APPLESAUCE WITHOUT DELAY OR DIFFICULTY. NO DIFFICULTY OR DELAY IN SWALLOWING WATER EITHER. TURNED HER TO RIGHT SIDELYING POSITION AND CHANGED HER COCCYX DRESSING PER CURRENT ORDERS. PATIENT DENIES DISTRESS.
[2016-08-03] VITALS (12 sets, daily range): BP systolic 122–199; BP diastolic 57–82
--- NOTE | 2016-08-03 | NUR ---
AWAKE. IN BED. TRANSFUSION CONTINUES, NOW @ 167ML/HR SINCE 0.
--- NOTE | 2016-08-03 02:05 | NUR ---
REMAINS IN BED. RESTING QUIETLY FOR NOW. 2ND UNIT PRBC'S INFUSING PER PUMP VIA LEFT WRIST S/L @ 125ML/HR RATE.
--- NOTE | 2016-08-03 03:20 | NUR ---
2ND UNIT PRBC'S COMPLETE. FLUSHING LINE WITH 30ML NS @ 125ML/HR. PATIENT DROWSY BUT AWAKE.
--- NOTE | 2016-08-03 04:05 | NUR ---
PATIENT NOW LYING ON LEFT SIDE. AWAKE. NO EVIDENT DISTRESS.
--- NOTE | 2016-08-03 05:50 | NUR ---
FSBS 128. PATIENT TOOK PO SYNTHROID WHOLE IN APPLESAUCE ABOUT 15 MINUTES AGO. FLUSHED HER LEFT WRIST S/L AND IT REMAINS PATENT. CONTINUES ON IN PARTIAL RIGHT SIDELYING POSITION. SMYTH CATH OUTPUT FOR SHIFT IS A CLOUDY 400ML. PATIENT DENIES NEEDS.
--- NOTE | 2016-08-03 07:51 | NUR ---
PATIENT REMAINS IN CONTACT ISOLATION URINE. ALERT/ORIENT TO SELF ONLY. THIS NURSE FEEDING PATIENT BREAKFAST. TOTAL ASST WITH BREAKFAST. SMYTH CATH INTACT. DRAINING DARK YELLOW URINE. FIRST STEP MATTRESS ON BED DUE TO SKIN/COCCYX. CALL LIGHT WITHIN REACH.
--- NOTE | 2016-08-03 07:52 | NUR ---
SITTING UP IN BED EATING BREAKFAST. CALL LIGHT IN REACH
--- NOTE | 2016-08-03 07:55 | NUR ---
DR. Ai WEBBER INTO SEE PATIENT. NEW ORDERS RECEIVED
--- NOTE | 2016-08-03 10:30 | NUR ---
PATIENT RESTING IN BED. CALL LIGHT WITHIN REACH.
--- NOTE | 2016-08-03 12:00 | NUR ---
GLUCOSE LEVEL 339. EIGHT UNITS OF SLIDING SCALE INSULIN GIVEN
--- NOTE | 2016-08-03 15:42 | NUR ---
PATIENT PULLED OUT IV FROM LEFT WRIST. PATIENT DOES NOT HAVE ANY MEDICATIONS IV. DID NOT RESTART
--- NOTE | 2016-08-03 17:48 | NUR ---
GLUCOSE LEVEL 190, TWO UNITS OF SLIDING SCALE INSULIN GIVEN. THIS NURSE FEEDING PATIENT
--- NOTE | 2016-08-03 19:43 | NUR ---
PT RECEIVED IN BED WITH EYES OPEN. WOULD NOT RESPOND TO QUESTIONS AT THIS TIME OF NEEDS OR PAIN. NO SIGN/SYMPTOMS OF DISTRESS NOTED. CALL LIGHT IN REACH. WILL CONTINUE TO OBSERVE.
--- NOTE | 2016-08-03 22:51 | NUR ---
PT IN BED WITH EYES OPEN. SOME COMMUNICATION NOTED. NO COMPLAINTS OF PAIN OR NEEDS MADE KNOWN AT THIS TIME. DRESSING TO COCCYX CHANGED WITH MODERATE AMOUNT OF SEROSANGUINEOUS DRAINAGE NOT SATURATING DRESSING. AREA CLEANSED WITH WOUND CLEANSER, PAT DRY, SANTYL APPLIED WITH BOARDERED 4X4 DRESSING APPLIED. PT TOLERATED WELL. NO OTHER CONCERNS NOTED. CALL LIGHT IN REACH. WILL CONTINUE TO OBSERVE.
--- NOTE | 2016-08-04 01:48 | NUR ---
PT IN BED WITH EYES OPEN. NO SIGN/SYMPTOMS OF DISTRESS NOTED. CALM AND NOT PULLING ON CATHETER AT THIS TIME. CALL LIGHT IN REACH. WILL CONTINUE TO OBSERVE.
--- NOTE | 2016-08-04 03:56 | NUR ---
PT IN BED WITH EYES CLOSED AND CHEST RISING. NO CONCERNS OR SIGN/SYMPTOMS OF DISTESS NOTED. CALL LIGHT IN REACH. WILL CONTINUE TO OBSERVE.
[2016-08-04 06:34] LABS: BASOPHILS 0.1 % (0-2); EOSINOPHILS 0.1 % (0-7); IMMATURE GRANULOCYTES 0.4 % (0-5); LYMPHOCYTES 3.5 % (15-50); MCH 28.3 pg (26.0-34.0); MCHC 32.1 g/dL (31.0-37.0); MEAN PLATELET VOLUME 11.2 fL (7.4-10.4); MONOCYTES 5.5 % (2-11); NEUTROPHILS 90.4 % (40-80); PLATELET COUNT 272 10x3/uL (130-400)
[2016-08-04 06:50] LABS: MCV 88.1 fL (80.0-100.0); RBC 3.18 10x6/uL (4.00-5.40); WBC 16.7 10x3/uL (4.8-10.8)
--- NOTE | 2016-08-04 06:59 | NUR ---
PT IN BED WITH EYES OPEN. UNCLAMP STA-LOCK AND CATHETER WAS RESECURED. ALSO REMOVED LEFT SCD AND REPLACED. NO OTHER CONCERN MADE KNOWN. CALL LIGHT IN REACH.
[2016-08-04 07:01] LABS: ANION GAP 11.6 mmol/L (8-16); CALCIUM 7.9 mg/dL (8.5-10.1); CARBON DIOXIDE 30.5 mmol/L (21.0-32.0); CREATININE - SERUM 1.6 mg/dL (0.6-1.3); POTASSIUM - SERUM 4.1 mmol/L (3.5-5.1)
[2016-08-04 08:47] VITALS: BP 181/63
--- NOTE | 2016-08-04 12:50 | NUR ---
Nutrition Follow Up: Chart reviewed. Pt is eating 29% meal avg on a regular diet. RD liberalized diet on 08/02/16 to encourage po intake. Intake has remained ~the same but glucose has elevated significantly. +BM 07/31/16. Labs reviewed - Glucose, BUN, Cr elevated. Meds noted including Megace, Lantus, Metformin, Humulin, Colace. Will change diet back to diabetic to aid in glucose control. RD will continue to monitor pt progress.
--- NOTE | 2016-08-04 15:14 | NUR ---
spoke with patient carolynemelina Bravo and she would like referral sent to [facility]. referral sent for possible admission. will continue to follow with patient
[2016-08-04 18:53] VITALS: BP 176/82
--- NOTE | 2016-08-04 18:57 | NUR ---
PT HAD AN UNEVENTFUL SHIFT TODAY. NO SIGNS OF ANY DISCOMFORT OR DISTRESS. SHE WENT TO REHAB AND WORKED HARD. VITAL SIGNS WNL.
--- NOTE | 2016-08-04 19:55 | NUR ---
PT. IN BED WITH HOB UP FOR COMFORT WITH EYES CLOSED AND RESP. EVEN. PT. ON FIRST STEP AIR MATTRESS DUE TO P.U. ON COCCYX. PT. AWAKENS EASILY FOR ASSESSMENT BUT IS NON-VERBAL SO FAR THIS SHIFT. CALL LIGHT WITHIN REACH BUT SHE HAS YET TO USE IT THAT I'M AWARE OF. WILL CONTINUE TO MONITOR.
--- NOTE | 2016-08-04 23:05 | NUR ---
PT. IN BED WITH HOB UP FOR COMFORT WITH EYES CLOSED AND RESP. DEEP AND EVEN. PT. LYING ON LEFT SIDE WITH PILLOW AT BACK FOR SUPPORT WITH PILLOW BETWEEN KNEES THAT PT. HAS PULLED OUT. CALL LIGHT WITHIN REACH BUT PT. HAS YET TO USE.
--- NOTE | 2016-08-05 01:00 | NUR ---
WHILE CLEANING UP INCONTINENT BM SAW WHERE RLE IS EDEMATOUS AND PT. HAS A PURPLE BRUISE TO RIGHT KNEE THAT IS FADING IN COLOR. THIS WAS NOT PRESENT THE LAST TIME I CARED FOR PT. PT. CONTINUES TO BE NON-VERBAL THIS SHIFT BUT DOES MAKE EYE CONTACT.
--- NOTE | 2016-08-05 03:01 | NUR ---
PT. IN BED WITH HOB UP FOR COMFORT AND LYING ON HER LEFT SIDE. PILLOW AT BACK FOR SUPPORT, PILLOW BETWEEN KNEES ALSO. SMYTH TO BSD WITHOUT PROBLEMS AND CALL LIGHT WITHIN REACH.
[2016-08-05 07:00] VITALS: BP 173/78
--- NOTE | 2016-08-05 07:00 | NUR ---
PT WAS RECEIVED AT THE BEGINNING OF THIS SHIFT IN BED AWAKE. SMYTH CATHETER IS PATENT AND DRAINING YELLOW URINE INTO DRAINAGE BAG SYSTEM. PT MAKES EYE CONTACT BUT DOES NOT TALK. PT IS INCONTINENT OF BOWEL. 02 PER NC GOING AT 2l/MIN. LIAN IN RT. HIP INTACT. PT IS A 2 PERSON ASSIST. SHE REMAINS ON CONTACT ISOLATION FOR VRE IN THE URINE. WILL BE MONITORING HER AND ASSISTING PRN WITH ADL'S. SIDE RAILS UP FOR SAFETY. CALL LIGHT IS IN REACH. PT. IS WITH NO SIGNS OF DISCOMFORT OR DISTRESS.
--- NOTE | 2016-08-05 18:08 | NUR ---
PT WAS GIVEN A TRAMADOL 50MG AT 1500 TODAY FOR FACIAL GRIMMACING WHILE PUTTING BACK TO BED. PT. RT. KNEE PURPLE AND SWOLLEN. ORDER RECEIVED FOR X-RAY. PT. REMAINS A FEEDER WITH EACH MEAL. INCONTINENT OF BOWEL AND BLADDER. PT. HAS HAD 2 BOWEL MOVEMENTS TODAY. PT. IS TURNED AND REPOSITIONED Q 2 HOURS WHILE IN BED FOR COMFORT AND CIRCULATION PURPOSES. SMYTH CATHETER CONTINUES TO BE PATENT. PT. IS ON A 1ST STEP MATTRESS. 02 PER NC GOING AT 2L/MIN.
[2016-08-05 19:00] VITALS: BP 148/61
--- NOTE | 2016-08-05 20:35 | NUR ---
PT HS MEDS ADMINISTERED. PT DENIES NEEDS. BED LOW. CL IN REACH.
--- NOTE | 2016-08-05 23:15 | NUR ---
PT RESTING, EYES CLOSED. BED LOW. CL IN REACH.
--- NOTE | 2016-08-06 01:25 | NUR ---
PT RESTING, EYES CLOSED. BED LOW. CL IN REACH.
--- NOTE | 2016-08-06 03:09 | NUR ---
PT RESTING, EYES CLOSED. BED LOW. CL IN REACH.
--- NOTE | 2016-08-06 07:00 | NUR ---
PT WAS RECEIVED IN BED STABLE AND AWAKE AT 0700. VITAL SIGNS WNL. NO SIGNS OF DISCOMFORT OR DISTRESS. CALL LIGHT IS IN HER REACH. SHE IS TOTAL CARE AND A FEEDER. PT CONTINUES TO BE ON CONTACT ISOLATION. SMYTH CATHETER IS PATENT AND DRAINING CLEAR YELLOW URINE TO GRAVITY. INCONTINENT OF BOWEL. WILL BE MONITORING HER CLOSELY THIS SHIFT AND PROVIDING SAFETY FOR HER.
[2016-08-06 09:48] VITALS: BP 175/61
[2016-08-06 20:15] VITALS: BP 188/67
--- NOTE | 2016-08-06 22:10 | NUR ---
PT HS MEDS ADMINISTERED. PT DRESSING TO COCCYX CHANGED. WOUND CLEANSED, SANTYL APPLIED AND BORDER GAUZE APPLIED. PT DENIES NEEDS. WCTM. BED LOW. CL IN REACH.
--- NOTE | 2016-08-07 01:19 | NUR ---
PT RESTING, EYES CLOSED. BED LOW. CL IN REACH.
[2016-08-07 07:27] LABS: BASOPHILS 0 % (0-2); EOSINOPHILS 0.8 % (0-7); HEMATOCRIT 27.2 % (36.0-48.0); HEMOGLOBIN 8.5 g/dL (12-16); IMMATURE GRANULOCYTES 0.4 % (0-5); LYMPHOCYTES 5.5 % (15-50); MCH 28.2 pg (26.0-34.0); MCHC 31.3 g/dL (31.0-37.0); MCV 90.4 fL (80.0-100.0); MEAN PLATELET VOLUME 11.8 fL (7.4-10.4); MONOCYTES 7.7 % (2-11); NEUTROPHILS 85.6 % (40-80); PLATELET COUNT 305 10x3/uL (130-400); RBC 3.01 10x6/uL (4.00-5.40); RDW 20.4 % (11.5-14.5); WBC 11.3 10x3/uL (4.8-10.8)
[2016-08-07 07:32] LABS: ANION GAP 11.7 mmol/L (8-16); CALCIUM 7.5 mg/dL (8.5-10.1); CARBON DIOXIDE 29.4 mmol/L (21.0-32.0); CREATININE - SERUM 1.7 mg/dL (0.6-1.3); POTASSIUM - SERUM 4.1 mmol/L (3.5-5.1)
--- NOTE | 2016-08-07 08:00 | NUR ---
PATIENT REMAINS IN CONTACT ISOLATION FOR VRE IN [facility]. SMYTH CATH IN PLACE. DORIS WILSON HAS DARK LIQUID URINE IN BAG. THIS NURSE FEEDING PATIENT BREAKFAST. POOR APPETITE
--- NOTE | 2016-08-07 09:52 | NUR ---
DR. David WEBBER INTO SEE PATIENT. NEW ORDERS TO DISCHARGE PATIENT TO [facility]
--- NOTE | 2016-08-07 10:05 | NUR ---
PATIENT DISCHARGING TO THE [facility]. NO HOME HEALTH OR DME NEEDED AT THIS TIME. DR. MCGRAW 08/10/16 @ 10:00. DAUGHTER DAVID NOTIFED OF ACCEPTANCE TO FACILITY. PATIENT CHOICE FORM FOR SNF AND [facility] FORM SIGNED (PER PHONE OK), EXPLAINED AND FILED IN CHART.[facility] WILL BE HERE AT 2:00 TO TRANSPORT PATIENT
--- NOTE | 2016-08-07 13:10 | NUR ---
PATIENTS SURGICAL CLIPS REMOVED FROM RIGHT HIP INCISION WITHOUT DIFFICULTIY. DRESSING ON COCCYX CHANGED. SMYTH CATH CARE GIVEN. PATIENT DRESSED IN SCRUBS TO TRANSFER TO [facility]. PATIENT DOES NOT HAVE ANY CLOTHES OF HER OWN
--- NOTE | 2016-08-07 15:03 | NUR ---
[facility] HERE TO TAKE PATIENT TO FACILITY. REPORT CALLED TO MELLY MARTINEZ.
== END 2016-08-07 15:04 | DRG 560 ==
LOC: D.REHAB 16:00 → UNDOADMIN 16:00 → D.REHAB 17:30
PROVIDERS: ADMIT Emergency Medicine
DX: S72.001D Fracture of unspecified part of neck of right femur, subsequent encounter for closed fracture with routine healing (principal); D62 Acute posthemorrhagic anemia; I50.22 Chronic systolic (congestive) heart failure; E11.649 Type 2 diabetes mellitus with hypoglycemia without coma; M19.90 Unspecified osteoarthritis, unspecified site; F03.90 Unspecified dementia, unspecified severity, without behavioral disturbance, psychotic disturbance, mood disturbance, and anxiety; K21.9 Gastro-esophageal reflux disease without esophagitis; Z66 Do not resuscitate; I48.0 Paroxysmal atrial fibrillation; I11.0 Hypertensive heart disease with heart failure

== ENCOUNTER 2016-08-13 11:58 | Emergency (ER) | payer MEDICARE, OTHER ==
[2016-07-22 17:04] VITALS: BMI 16.0
[2016-08-13 12:36] LABS: BASOPHILS 0.1 % (0-2); EOSINOPHILS 0.6 % (0-7); HEMOGLOBIN 9.5 g/dL (12-16); IMMATURE GRANULOCYTES 0.3 % (0-5); LYMPHOCYTES 4.1 % (15-50); MCH 29.1 pg (26.0-34.0); MCHC 30.6 g/dL (31.0-37.0); MCV 95.1 fL (80.0-100.0); MEAN PLATELET VOLUME 10.8 fL (7.4-10.4); MONOCYTES 8.6 % (2-11); NEUTROPHILS 86.3 % (40-80); PLATELET COUNT 342 10x3/uL (130-400); RBC 3.26 10x6/uL (4.00-5.40); WBC 9.7 10x3/uL (4.8-10.8)
[2016-08-13 12:50] LABS: ALBUMIN 2.5 g/dL (3.4-5.0); ANION GAP 10.4 mmol/L (8-16); BILIRUBIN - TOTAL 1.04 mg/dL (0.2-1.3); CALCIUM 8.2 mg/dL (8.5-10.1); CARBON DIOXIDE 31.3 mmol/L (21.0-32.0); CREATININE - SERUM 1.7 mg/dL (0.6-1.3); POTASSIUM - SERUM 3.7 mmol/L (3.5-5.1); PROTEIN - SERUM 6.8 g/dL (6.4-8.2)
[2016-08-13 13:01] LABS: APTT 23.6 SECONDS (22.8-39.4); INR 1.02 (0.85-1.17); PROTIME 13.2 SECONDS (11.6-15.0)
== END 2016-08-14 00:38 | disposition home or self-care (01) ==
LOC: D.ER 11:58
PROVIDERS: Emergency Medicine
DX: S70.11XA Contusion of right thigh, initial encounter (principal); X58.XXXA Exposure to other specified factors, initial encounter; Y93.89 Activity, other specified; Y92.89 Other specified places as the place of occurrence of the external cause; E11.9 Type 2 diabetes mellitus without complications; Z79.4 Long term (current) use of insulin; I10 Essential (primary) hypertension

== ENCOUNTER 2016-08-29 02:43 | Inpatient (IN) | payer MEDICARE, OTHER ==
[~2016-08-29] VITALS: Ht 154.9 cm; Wt 45.4 kg
[2016-08-29 03:26] LABS: UDS - AMPHET NEGATIVE QUAL (NEGATIVE); UDS - BARB NEGATIVE QUAL (NEGATIVE); UDS - BENZO NEGATIVE QUAL (NEGATIVE); UDS - COCAINE NEGATIVE QUAL (NEGATIVE); UDS - METH NEGATIVE QUAL (NEGATIVE); UDS - OPIATE NEGATIVE QUAL (NEGATIVE); UDS - PCP NEGATIVE QUAL (NEGATIVE); UDS - THC NEGATIVE QUAL (NEGATIVE)
[2016-08-29 03:39] LABS: BASOPHILS 0.1 % (0-2); EOSINOPHILS 0.5 % (0-7); HEMATOCRIT 34.6 % (36.0-48.0); HEMOGLOBIN 10.8 g/dL (12-16); IMMATURE GRANULOCYTES 0.3 % (0-5); LYMPHOCYTES 5.4 % (15-50); MCH 30.3 pg (26.0-34.0); MCHC 31.2 g/dL (31.0-37.0); MCV 96.9 fL (80.0-100.0); MEAN PLATELET VOLUME 11.3 fL (7.4-10.4); MONOCYTES 4.9 % (2-11); NEUTROPHILS 88.8 % (40-80); RBC 3.57 10x6/uL (4.00-5.40); RDW 20.5 % (11.5-14.5); WBC 10.6 10x3/uL (4.8-10.8)
[2016-08-29 03:43] LABS: PLATELET COUNT 172 10x3/uL (130-400)
[2016-08-29 04:04] LABS: ALBUMIN 2.3 g/dL (3.4-5.0); ANION GAP 8.6 mmol/L (8-16); BILIRUBIN - TOTAL 0.62 mg/dL (0.2-1.3); CARBON DIOXIDE 31.6 mmol/L (21.0-32.0); CREATININE - SERUM 1.5 mg/dL (0.6-1.3); POTASSIUM - SERUM 3.2 mmol/L (3.5-5.1)
[2016-08-29 04:23] LABS: MAGNESIUM - SERUM 1.8 mg/dL (1.8-2.4)
[2016-08-29 04:33] LABS: TROPONIN-I 0.088 ng/mL (0.000-0.060)
[2016-08-29 09:28] VITALS: BP 146/47; BMI 18.9
--- NOTE | 2016-08-29 09:47 | NUR ---
PT AOX1 TO SELF. RESP EVEN AND NONLABORED LUNGS SOUNDS CLEAR BRUISING NOTED TO RIGHT KNEE UPON ARRIVAL TO UNIT WITH 4+ PITTING EDEMA TO RIGHT FOOT. SACRAL WOUND 3X4 STAGE THREE PRESSURE ULCER PRESENT AT THIS TIME. 18 GUAGE IV TO LEFT FOREARM PATENT AND INTACT AT THIS TIME. BED AT LOWEST SETTING SRX2 WITH POSI ALARM ON BED ACTIVE. WILL MONITOR PT
--- NOTE | 2016-08-29 09:59 | NUR ---
Wound Care Consult: Wound care is familiar with this pt. She has an UNSTAGEABLE pressure injury to the sacrum measuring 3cm x 4cm x yellow necrotic tissue. Recommend Santyl ointment to wound bed. Pt is very frail and thin. She has bruising and scratches on her knees and bruising on her arms. She in incontinent of bowels and bladder. She has some confusion. Requires turning/repositioning q2h and total care. Wound care will monitor.
[2016-08-29 12:03] VITALS: BP 122/65
[2016-08-29 12:35] VITALS: Ht 154.9 cm; Wt 45.4 kg
[2016-08-29 16:00] VITALS: BP 134/47
--- NOTE | 2016-08-29 19:20 | NUR ---
RECIEVED SHIFT REPORT. PT IS LYING IN BED. PT IS ORIENTED TO SELF ONLY AT THIS TIME AND APPEARS TO BE NONVERBAL MOST OF THE TIME. PT WILL SHAKE HEAD YES AND NO TO QUESTIONS. PT REQUIRES ASSISTANCE TURNING IN BED FOR COMFORT AND SKIN CARE. SCD'S ON. PT DENIES ANY PAIN AT THIS TIME. IV IS PATENT AND FLUIDS ARE RUNNING PER ORDER. NO NEEDS ARE VERBALIZED AT THIS TIME. WILL CONTINUE TO MONITOR. SIDE RAILS ARE UP X 2. BED IS IN LOWEST POSITION. KARLIE MAT IS ON FOR SAFETY. CALL LIGHT IS WITHIN REACH.
[2016-08-29 20:00] VITALS: BP 182/89
--- NOTE | 2016-08-29 20:34 | NUR ---
SHIFT ASSESSMENT COMPLETED. PT [id number] AT THIS TIME. NO NEEDS ARE VOICED. WILL MONITOR. SIDE RAILS X 2. BED LOW. BED ALARM ON. CALL LIGHT IN REACH.
[2016-08-30 04:00] VITALS: BP 177/70
[2016-08-30 05:07] LABS: BASOPHILS 0.1 % (0-2); EOSINOPHILS 0.6 % (0-7); HEMATOCRIT 34.6 % (36.0-48.0); HEMOGLOBIN 10.8 g/dL (12-16); IMMATURE GRANULOCYTES 0.1 % (0-5); LYMPHOCYTES 8.1 % (15-50); MCH 30.5 pg (26.0-34.0); MCHC 31.2 g/dL (31.0-37.0); MCV 97.7 fL (80.0-100.0); MEAN PLATELET VOLUME 11.2 fL (7.4-10.4); MONOCYTES 8.5 % (2-11); NEUTROPHILS 82.6 % (40-80); PLATELET COUNT 171 10x3/uL (130-400); RBC 3.54 10x6/uL (4.00-5.40); RDW 20.5 % (11.5-14.5)
[2016-08-30 05:17] LABS: WBC 7.8 10x3/uL (4.8-10.8)
[2016-08-30 05:23] LABS: ALBUMIN 2.2 g/dL (3.4-5.0); ANION GAP 5.7 mmol/L (8-16); BILIRUBIN - TOTAL 0.9 mg/dL (0.2-1.3); CALCIUM 7.7 mg/dL (8.5-10.1); CARBON DIOXIDE 32.3 mmol/L (21.0-32.0); CREATININE - SERUM 1.4 mg/dL (0.6-1.3); PROTEIN - SERUM 5.8 g/dL (6.4-8.2)
--- NOTE | 2016-08-30 07:30 | NUR ---
ALERTED BY SOHAIL LIN, OF BLOOD PRESSURES BEING 232/96, 227/89, AND 215/83. WILL RECHECK MANUALLY.
[2016-08-30 08:06] VITALS: BP 215/83
--- NOTE | 2016-08-30 08:06 | NUR ---
PT BP RECHECKED MANUALLY ON R ARM. CURRENTLY 218/80 WITH HR OF 104. NO SIGNS OF DISTRESS AND NO COMPLAINTS OF CHEST PAIN.
--- NOTE | 2016-08-30 08:10 | NUR ---
POTASSIUM RIDER ADMINISTERED AT THIS TIME PER ORDER. PT RESTING IN BED WITH NO COMPLAINTS OF PAIN OR DISCOMFORT AT THIS TIME. BED IN LOW POSITION AND CALL LIGHT WITHIN REACH. WILL CONTINUE TO MONITOR.
--- NOTE | 2016-08-30 08:13 | NUR ---
DR. SHANTEL RAÍMREZ.
--- NOTE | 2016-08-30 08:29 | NUR ---
DR. FUNES RETURNED CALL. NEW ORDERS REC'D.
--- NOTE | 2016-08-30 11:34 | NUR ---
Patient Name: HOLLI PEREZ Admission Status: ER Accout number: [id number] Admission Date: 08-29-2016 : 1927 Admission Diagnosis: Attending: SCARLETT Current LOS: 1 Anticipated DC Date: Planned Disposition: Primary Insurance: MEDICARE A & B Discharge Planning Comments: CM attempted to speak with patient, but patient was alseep and nurse states that she is confused. CM called her daughter (Sosa Lopez) [phone] and talked to her about patient. Daughter stated that she is a current resident at [facility], but she and her other sister's are looking into a care home where there is more one on one care. CM will continue to follow and assit as needed with discharge planning/needs PCP: Rosa ([facility]) Pharmacy: [place] Sosa Lopez (daughter) [phone] [facility] [employer] Coach: Josiane Mcbride * Is the patient Alert and Oriented? No 0 * How many steps to enter\exit or inside your home? 0 0 * PCP [facility]A [facility] 0 * Pharmacy [place] 0 * Preadmission Environment [employer] Member [place] 0 * Facility Name [facility] 0 * ADLs Total Dependent 0 * List name and contact numbers for known caregivers / representatives who currently or will assist patient after discharge: DAUGHTER - SOSA LOPEZ [phone] * Additional services required to return to the preadmission environment? Yes 0 * Can the patient safely return to the preadmission environment? Yes 0 * Has this patient been hospitalized within the prior 30 days at any hospital? Yes 0 Grand Total: 0
[2016-08-30 12:48] VITALS: BP 175/74
--- NOTE | 2016-08-30 13:15 | NUR ---
PARTIAL BED BATH AND LINEN CHANGE PROVIDED. TURNED TO R SIDE. ALERT TO SELF, AND PLACE ONLY. BED ALARM ON, LOW, CALL LIGHT IN REACH, DENIES NEEDS. CPOC.
--- NOTE | 2016-08-30 14:10 | NUR ---
CURRENT FSBS 386. 10 UNITS OF INSULIN ADMINISTERED PER SS. DR. FUNES AND THOM LUNA, AT BEDSIDE DISCUSSING POC.
--- NOTE | 2016-08-30 14:52 | NUR ---
IV RESITED TO R UPPER ARM. 20GUAGE X2 ATTEMPTS. TOLERATED WELL. BED LOW, CALL LIGHT IN REACH, DENIES NEEDS. CPOC.
[2016-08-30 16:02] VITALS: BP 127/90
--- NOTE | 2016-08-30 18:26 | NUR ---
CURRENT FSBS 292. 6 UNITS OF INSULIN ADMINISTERED PER SS. RESTING IN BED WATCHING TV. BED LOW, CALL LIGHT IN REACH, DENIES NEEDS. CPOC.
--- NOTE | 2016-08-30 19:35 | NUR ---
RECIEVED SHIFT REPORT. PT IS LYING IN BED. PT IS ALERT AND ORIENTED WITH THE EXCEPTION OF TIME AT THIS TIME. IV IS PATENT AND FLUIDS ARE RUNNING PER ORDER. PT REQUIRES MINIMAL ASSISTANCE TURNING IN BED FOR COMFORT AND SKIN CARE. SCD'S ON. PT DENIES ANY PAIN AT THIS TIME. NO NEEDS ARE VERBALIZED AT THIS TIME. WILL CONTINUE TO MONITOR. SIDE RAILS ARE UP X 2. BED IS IN LOWEST POSITION. KARLIE MAT IS ON FOR SAFETY. CALL LIGHT IS WITHIN REACH.
[2016-08-30 20:00] VITALS: BP 197/75
--- NOTE | 2016-08-30 20:36 | NUR ---
SHIFT ASSESSMENT COMPLETED. NIGHT MEDS GIVEN WITH NO PROBLEMS. NO NEEDS ARE VOICED. WILL MONITOR. SIDE RAILS X 2. BED LOW. KARLIE MAT ON. CALL LIGHT IN REACH.
[2016-08-31] VITALS: BP 185/89
[2016-08-31 04:00] VITALS: BP 169/80
[2016-08-31 05:42] LABS: BASOPHILS 0.2 % (0-2); EOSINOPHILS 2.3 % (0-7); HEMATOCRIT 33.5 % (36.0-48.0); HEMOGLOBIN 10.6 g/dL (12-16); IMMATURE GRANULOCYTES 0.3 % (0-5); LYMPHOCYTES 12.8 % (15-50); MCH 30.6 pg (26.0-34.0); MCHC 31.6 g/dL (31.0-37.0); MCV 96.8 fL (80.0-100.0); MONOCYTES 9.6 % (2-11); NEUTROPHILS 74.8 % (40-80); PLATELET COUNT 161 10x3/uL (130-400); RBC 3.46 10x6/uL (4.00-5.40); RDW 19.7 % (11.5-14.5); WBC 6.5 10x3/uL (4.8-10.8)
[2016-08-31 05:55] LABS: ALBUMIN 2.2 g/dL (3.4-5.0); ANION GAP 10.6 mmol/L (8-16); BILIRUBIN - TOTAL 1.4 mg/dL (0.2-1.3); CALCIUM 7.5 mg/dL (8.5-10.1); CREATININE - SERUM 1.2 mg/dL (0.6-1.3); POTASSIUM - SERUM 3.6 mmol/L (3.5-5.1); PROTEIN - SERUM 5.8 g/dL (6.4-8.2)
--- NOTE | 2016-08-31 07:48 | NUR ---
ASSESSMENT COMPLETED AT THIS TIME. PATIENT IS ORIENTED TO PERSON AND PLACE. REORIENTED PATIENT TO TIME AND SITUATION. PATIENT LAYING ON HER LEFT SIDE POSITIONED WITH PILLOWS UPON ENTERING ROOM. PATIENT HAD INCONTINENT EPISODE OF URINE. CLEANED PATIENT WITH WIPES. CHANGED PAD AND CHUCKS. CHANGED DRESSING TO COCCYX, APPLIED SANTYL TO WOUND BED COVERED WITH BORDERED GAUZE. PATIENT NOW LAYING ON HER BACK. SCDS TO BILATERAL LEGS. BILATERAL LEGS ELEVATED ON A PILLOW. BED ALARM ON. PATIENT IS RECEIVING OXYGEN AT 2L/MIN PER NASAL CANNULA. BED IN LOWEST POSITION, CALL LIGHT IN REACH. BED RAILS UP X'S 2. NO SIGNS OF DISTRESS NOTED. PATIENT DENIES NEEDS.
[2016-08-31 07:53] VITALS: BP 149/77
--- NOTE | 2016-08-31 09:32 | NUR ---
PATIENT HAD INCONTINENT BOWEL MOVEMENT, DIARRHEA, VERY ODOROUS. CLEANED PATIENT WITH WIPES. CHANGED BLUE CHUCKS. TURNED PATIENT TO HER RIGHT SIDE POSITIONED WITH A PILLOW BEHIND HER BACK AND ONE BETWEEN HER LEGS. PATIENT TOOK OF NASAL CANNULA, I PUT IT BACK ON AND REMINDED PATIENT TO KEEP THE OXYGEN ON. RESPIRATIONS ARE EVEN AND UNLABORED. BED RAILS UP X'S 3. PATIENT DENIES PAIN AND NEEDS AT THIS TIME, KARLIE MAT ALARM ON.
[2016-08-31 12:32] VITALS: BP 176/76
--- NOTE | 2016-08-31 13:23 | NUR ---
08/31/2016 13:15 DCP: Discharge Planning CM spoke with daughter, Noemi Russ. She has made arrangements for patient to go to a private Hospice Home with [facility]. CM contacted Jessica Fisher at the home @ [phone] & confirmed above. The hospice home is located at [address] [place] [address]. Official referral faxed & called to [facility]. Anticipate dc this afternoon via ambulance.
[2016-08-31] MEDS ORDERED: SANTYL30 GM TOPICAL (13:38)
--- NOTE | 2016-08-31 13:45 | NUR ---
WITH ASSISTANCE FROM PATIENT'S DAUGHTER CLEANED PATIENT UP CHANGED HER LINENS,
--- NOTE | 2016-08-31 13:58 | NUR ---
CALLED REPORT TO MICAH VALDEZ.
--- NOTE | 2016-08-31 14:52 | NUR ---
CALLED JB WITH [employer] HE SAID IT WILL PROBABLY BE AN HOUR TO AN HOUR AND A HALF. TOLD THE DAUGHTER.
--- NOTE | 2016-08-31 16:46 | NUR ---
CALLED MICAH LET HER KNOW THE PATIENT IS ON HER WAY. THE PATIENT IS LEAVING WITH EMS NOW
== END 2016-08-31 16:46 | disposition home health service (06) | DRG 639 ==
LOC: D.ER 02:43 → D.MS 03:48 → OBSVTIME 03:48 → D.MS 03:49
PROVIDERS: Emergency Medicine; ADMIT Family Medicine
DX: E13.641 Other specified diabetes mellitus with hypoglycemia with coma (principal); T38.3X5A Adverse effect of insulin and oral hypoglycemic [antidiabetic] drugs, initial encounter; I11.0 Hypertensive heart disease with heart failure; I50.9 Heart failure, unspecified; S72.001D Fracture of unspecified part of neck of right femur, subsequent encounter for closed fracture with routine healing